=== PATIENT | male | born 1970 | race Caucasian/White ===

== ENCOUNTER 2018-02-09 13:59 | Observation (INO) | payer BC ==
--- NOTE | 2018-02-09 14:13 | ED ---
General Adult HPI - General Stated complaint: SEIZURE, DETOX , ETOH, MED CLEARANCE Time Seen by Provider: 02/09/18 14:02 Source: patient, RN notes reviewed Limitations: no limitations - History of Present Illness Initial comments: Patient is a pleasant 47-year-old male presenting to the emergency department by EMS with possible seizure. Patient went to [place] today for rehab. Patient admits to drinking 2/5 of alcohol today. Patient does drink vodka regularly. 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 Patient does not take any medication for seizures. Patient denies any suicidal or homicidal thoughts. No physical complaints. EMS reports that patient did make suicidal statements in route. - Related Data Home Medications Medication Instructions Recorded Confirmed DULoxetine HCL [Cymbalta] 60 mg PO DAILY 02/09/18 02/09/18 Allergies Allergy/AdvReac Type Severity Reaction Status Date / Time No Known Allergies Allergy Verified 02/09/18 14:55 Review of Systems ROS Statement: Those systems with pertinent positive or pertinent negative responses have been documented in the HPI. ROS Other: All systems not noted in ROS Statement are negative. Constitutional: Denies: fever Eyes: Denies: eye pain ENT: Denies: ear pain Respiratory: Denies: cough Cardiovascular: Denies: chest pain Endocrine: Denies: fatigue Gastrointestinal: Denies: abdominal pain Genitourinary: Denies: dysuria Musculoskeletal: Denies: back pain Skin: Denies: rash Neurological: Denies: headache, weakness Past Medical History Past Medical History: No Reported History Additional Past Medical History / Comment(s): was chewing on edge of plastic bag , accidently bit off piece and is lodged down in throat-can breathe fine, can eat but small amounts only-can feel it down in throat History of Any Multi-Drug Resistant Organisms: None Reported Additional Past Surgical History / Comment(s): humerus prosthesis left shoulder Additional Past Anesthesia/Blood Transfusion Reaction / Comment(s): woke up during shouder surg. Smoking Status: Current every day smoker General Exam Limitations: no limitations General appearance: alert, in no apparent distress, appears intoxicated Head exam: Present: atraumatic, normocephalic Eye exam: Present: normal appearance, PERRL, EOMI, nystagmus ENT exam: Present: normal oropharynx Neck exam: Absent: tenderness Respiratory exam: Present: normal lung sounds bilaterally Cardiovascular Exam: Present: regular rate, normal rhythm GI/Abdominal exam: Present: soft. Absent: tenderness Extremities exam: Present: normal inspection Neurological exam: Present: alert, oriented X3, CN II-XII intact, abnormal gait. Absent: motor sensory deficit Psychiatric exam: Present: other (Labile) Skin exam: Present: normal color Course Vital Signs 02/09/18 14:13 Temperature 98.1 F Pulse Rate 107 H Respiratory 18 Rate Blood Pressure 150/82 O2 Sat by Pulse 96 Oximetry Medical Decision Making - Medical Decision Making Patient will need mental health evaluation. Case was discussed with Dr. Espinoza , who will admit for hospital call. - Lab Data Result diagrams: 02/09/18 14:40 02/09/18 14:40 Lab Results 02/09/18 02/09/18 02/09/18 Range/Units 14:00 14:40 14:40 WBC 6.8 (3.8-10.6) k/uL RBC 5.12 (4.30-5.90) m/uL Hgb 16.6 (13.0-17.5) gm/dL Hct 47.1 (39.0-53.0) % MCV 92.0 (80.0-100.0) fL MCH 32.5 (25.0-35.0) pg MCHC 35.3 (31.0-37.0) g/dL RDW 12.9 (11.5-15.5) % Plt Count 336 (150-450) k/uL Sodium 146 H (137-145) mmol/L Potassium 4.4 (3.5-5.1) mmol/L Chloride 112 H (98-107) mmol/L Carbon Dioxide 21 L (22-30) mmol/L Anion Gap 13 mmol/L BUN 10 (9-20) mg/dL Creatinine 0.98 (0.66-1.25) mg/dL Est GFR (CKD-EPI)AfAm >90 (>60 ml/min/1.73 sqM) Est GFR (CKD-EPI)NonAf >90 (>60 ml/min/1.73 sqM) Glucose 102 H (74-99) mg/dL Calcium 9.8 (8.4-10.2) mg/dL Magnesium 2.3 (1.6-2.3) mg/dL Total Bilirubin 0.3 (0.2-1.3) mg/dL AST 41 (17-59) U/L ALT 42 (21-72) U/L Alkaline Phosphatase 74 (38-126) U/L Total Protein 7.2 (6.3-8.2) g/dL Albumin 4.3 (3.5-5.0) g/dL Urine Opiates Screen Not Detected (NotDetected) Ur Oxycodone Screen Not Detected (NotDetected) Urine Methadone Screen Not Detected (NotDetected) Ur Propoxyphene Screen Not Detected (NotDetected) Ur Barbiturates Screen Not Detected (NotDetected) U Tricyclic Antidepress Not Detected (NotDetected) Ur Phencyclidine Scrn Not Detected (NotDetected) Ur Amphetamines Screen Not Detected (NotDetected) U Methamphetamines Scrn Not Detected (NotDetected) U Benzodiazepines Scrn Not Detected (NotDetected) Urine Cocaine Screen Not Detected (NotDetected) U Marijuana (THC) Screen Not Detected (NotDetected) Serum Alcohol 292 H* mg/dL Disposition Clinical Impression: Suicidal ideation, Alcohol intoxication Disposition: ADMITTED IP TO THIS HOSP Is patient prescribed a controlled substance at d/c from ED?: No Referrals: None,Stated [Primary Care Provider] - 1-2 days Decision Time: 15:23
[2018-02-09] MEDS ORDERED: LORazepam 2 MG/ML INJ IM STA (14:47)
[2018-02-09] MEDS ORDERED: ZIPRASIDONE 20 MG VIAL IM STA (14:47)
[2018-02-09 14:56] LABS: HCT 47.1 % (39.0-53.0); HGB 16.6 gm/dL (13.0-17.5); MCH 32.5 pg (25.0-35.0); MCHC 35.3 g/dL (31.0-37.0); Mean Platelet Volume 6.3; Platelet Count 336 k/uL (150-450); RBC 5.12 m/uL (4.30-5.90); RDW 12.9 % (11.5-15.5); WBC 6.8 k/uL (3.8-10.6)
[2018-02-09 15:01] LABS: Amphetamine Screen,Urine Not Detected (NotDetected); Barbiturate Screen,Urine Not Detected (NotDetected); Benzodiazepines Screen,Urine Not Detected (NotDetected); Cocaine Screen,Urine Not Detected (NotDetected); Methadone Screen, Urine Not Detected (NotDetected); Opiate Screen,Urine Not Detected (NotDetected); Oxycodone Screen, Urine Not Detected (NotDetected); Phencyclidine Screen,Urine Not Detected (NotDetected); Tricyclic Antidepressant,Urine Not Detected (NotDetected); Urn Cannabinoid Scrn Not Detected (NotDetected)
[2018-02-09 15:11] LABS: ALT 42 U/L (21-72); AST 41 U/L (17-59); Albumin 4.3 g/dL (3.5-5.0); Alkaline Phosphatase 74 U/L (38-126); Anion Gap 13 mmol/L; Blood Urea Nitrogen 10 mg/dL (9-20); Calcium 9.8 mg/dL (8.4-10.2); Carbon Dioxide 21 mmol/L (22-30); Chloride 112 mmol/L (98-107); Glucose 102 mg/dL (74-99); Magnesium 2.3 mg/dL (1.6-2.3); Potassium 4.4 mmol/L (3.5-5.1); Sodium 146 mmol/L (137-145); Total Bilirubin 0.3 mg/dL (0.2-1.3); Total Protein 7.2 g/dL (6.3-8.2)
[2018-02-09 15:14] LABS: Alcohol 292 mg/dL
[2018-02-09] MEDS ORDERED: NALOXONE 0.4 MG/ML 1 ML VIAL IV PRN (15:23)
[2018-02-09] MEDS ORDERED: LORazepam 2 MG/ML INJ IV PRN ×3 (15:26)
[2018-02-09] MEDS ORDERED: THIAMINE 100 MG/ML 2 ML VIAL IM STA (15:26)
[2018-02-09] MEDS ORDERED: SODIUM CHLORIDE 0.9% 1,000 ML IV SCH (15:30)
[2018-02-09 15:47] LABS: Lymphocytes # (M) 1.36 k/uL (1.0-4.8); Monocytes # (M) 0.14 k/uL (0-1.0); Neutrophils % (M) 78 %; Nucleated Red Blood Cells 0 /100 WBC (0-0); Total Cells Counted 100
[2018-02-09] MEDS: THIAMINE 100 MG TAB PO SCH ×2 (18:51→18:54)
[2018-02-09] MEDS ORDERED: SODIUM CHLORIDE 0.45% 1,000 ML IV SCH (23:45)
--- NOTE | 2018-02-09 23:46 | P.HPIM ---
History of Present Illness H&P Date: 02/09/18 Chief Complaint: Possible seizures Patient is a 47-year-old male with a known history of depression was brought to the hospital by EMS with possible seizures. Patient went to [place] today for rehab. Patient admits to drinking 2/5 of alcohol today. Patient does drink vodka regularly. 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 Patient does not take any medication for seizures. No shaky movements were noted as per EMS. Patient denies any suicidal or homicidal thoughts. No physical complaints. EMS reports that patient did make suicidal statements in route. Currently patient is alcohol intoxicated and unable to provide history. Most of the history was taken from medical records and EMS notes. Review of Systems Complete review of systems could not be obtained from the patient. Past Medical History Past Medical History: No Reported History Additional Past Medical History / Comment(s): was chewing on edge of plastic bag , accidently bit off piece and is lodged down in throat-can breathe fine, can eat but small amounts only-can feel it down in throat History of Any Multi-Drug Resistant Organisms: None Reported Past Surgical History: No Surgical Hx Reported Additional Past Surgical History / Comment(s): humerus prosthesis left shoulder Additional Past Anesthesia/Blood Transfusion Reaction / Comment(s): woke up during shouder surg. Past Psychological History: ADD/ADHD, Depression Smoking Status: Unknown if ever smoked Past Alcohol Use History: Abuse, Daily Past Drug Use History: None Reported Additional Drug Use History / Comment(s): doesn 't use anymore Medications and Allergies Home Medications Medication Instructions Recorded Confirmed Type DULoxetine HCL [Cymbalta] 60 mg PO DAILY 02/09/18 02/09/18 History Allergies Allergy/AdvReac Type Severity Reaction Status Date / Time No Known Allergies Allergy Verified 02/09/18 14:55 Physical Exam Vitals: Vital Signs Temp Pulse Pulse Resp BP BP Pulse Ox 02/09/18 19:25 97.7 F 64 20 125/61 94 L 02/09/18 18:38 98.1 F 107 H 18 150/82 96 02/09/18 14:13 98.1 F 107 H 18 150/82 96 Intake and Output 02/09/18 02/09/18 02/09/18 06:59 14:59 22:59 Other: Weight 98.883 kg 85.956 kg PHYSICAL EXAMINATION: Patient is lying in the bed comfortably, no acute distress, awake alert and oriented.. HEENT: Normocephalic. Neck is supple. Pupils reactive. Nostrils clear. Oral cavity is moist. Ears reveal no drainage. Neck reveals no JVD, carotid bruits, or thyromegaly. CHEST EXAMINATION: Trachea is central. Symmetrical expansion. Lung arredondo clear to auscultation and percussion. CARDIAC: Normal S1, S2 with no gallops. No murmurs ABDOMEN: Soft. Bowel sounds normal. No organomegaly. No abdominal bruits. Extremities: reveal no edema. No clubbing or cyanosis Neurologically awake, alert, oriented x3 with well-coordinated movements. No focal deficits noted Skin: No rash or skin lesions. Psychiatric: Coperative. Could not be assessed at this time. Musculoskeletal: No joint swelling or deformity. Normal range of motion. Results CBC & Chem 7: 02/09/18 14:40 02/09/18 14:40 Labs: Abnormal Lab Results - Last 24 Hours (Table) 02/09/18 Range/Units 14:40 Sodium 146 H (137-145) mmol/L Chloride 112 H (98-107) mmol/L Carbon Dioxide 21 L (22-30) mmol/L Glucose 102 H (74-99) mg/dL Serum Alcohol 292 H* mg/dL Thrombosis Risk Factor Assmnt - DVT/VTE Prophylaxis DVT/VTE Prophylaxis: Pharmacologic Prophylaxis ordered - Choose All That Apply Any of the Below Risk Factors Present?: Yes Each Factor Represents 1 point: Obesity (BMI >25) Thrombosis Risk Factor Assessment Total Risk Factor Score: 1 Thrombosis Risk Factor Assessment Level: Low Risk Assessment and Plan Assessment: Altered mental status due to acute alcohol intoxication Suicidal ideation as per EMS Depression history. Currently not on any medications. Mild hypernatremia and hyperchloremia. DVT prophylaxis Plan: Patient will be continued on IV fluids in the form of half-normal saline and continue to monitor closely. Monitor for withdrawal symptoms. Psychiatric was consulted due to concern for suicidal ideation. Repeat BMP tomorrow. Further recommendations based on the clinical course. Time with Patient: Greater than 30
[2018-02-10] MEDS: HEPARIN SODIUM,PORCINE 5,000 UNIT/ML 1 ML VIAL SQ SCH ×2 (00:04→08:21)
[2018-02-10] MEDS ORDERED: CALCIUM CARBONATE 500 MG CHEWABLE PO PRN (02:19)
[2018-02-10 06:37] VITALS: BP 129/79; PULSE 67; RESP 18; TEMP 98.3
[2018-02-10] MEDS: THIAMINE 100 MG TAB PO SCH (08:21)
[2018-02-10] MEDS ORDERED: MULTIVITAMINS, THERA 1 EACH TAB PO SCH (12:00)
--- NOTE | 2018-02-11 00:24 | P.DS ---
Providers Date of admission: 02/09/18 15:25 Expected date of discharge: 02/10/18 Attending physician: Edgardo Espinoza Consults: 02/09/18 15:25 Consult Physician Urgent Consulting Provider: Chandana Candelario Consult Reason/Comments: Suicidal ideation Do you want consulting provider notified?: Already Contacted Primary care physician: Stated None Hospital Course: Discharge diagnosis Altered mental status due to acute alcohol intoxication Suicidal ideation as per EMS Depression history. Currently not on any medications. Mild hypernatremia and hyperchloremia. DVT prophylaxis Hospital course Patient is a 47-year-old male with a known history of depression was brought to the hospital by EMS with possible seizures. Patient went to [place] today for rehab. Patient admits to drinking 2/5 of alcohol today. Patient does drink vodka regularly. 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 Patient does not take any medication for seizures. No shaky movements were noted as per EMS. Patient denies any suicidal or homicidal thoughts. No physical complaints. EMS reports that patient did make suicidal statements in route. Plan: Patient was continued on IV fluids in the form of half-normal saline and continue to monitor closely. Monitored for withdrawal symptoms. Psychiatric was consulted due to concern for suicidal ideation. Patient is more awake and oriented today. Patient wants to be discharged home. Currently patient is alert and oriented 3 and suicide risk assessment was done. Patient is currently nonsuicidal at this time. Patient was counseled for alcohol abuse extensively. Patient otherwise to stay in the hospital for psychiatric evaluation and further management of withdrawal symptoms. Patient left AMA. Patient Condition at Discharge: Serious Plan - Discharge Summary New Discharge Prescriptions: No Action DULoxetine HCL [Cymbalta] 60 mg PO DAILY Discharge Medication List DULoxetine HCL [Cymbalta] 60 mg PO DAILY 02/09/18 [History] Follow up Appointment(s)/Referral(s): None,Stated [Primary Care Provider] - 1-2 days Discharge Disposition: Left Against Medical Advice
== END 2018-02-10 10:54 | disposition left against medical advice (07) ==
LOC: EC 13:59 → 4MS4W 15:25
PROVIDERS: ADMIT Internal Medicine; ATTEND Internal Medicine
DX: F10.129 Alcohol abuse with intoxication, unspecified (principal); R45.851 Suicidal ideations; F32.9 Major depressive disorder, single episode, unspecified; E87.0 Hyperosmolality and hypernatremia; E87.8 Other disorders of electrolyte and fluid balance, not elsewhere classified; F90.9 Attention-deficit hyperactivity disorder, unspecified type; Z79.899 Other long term (current) drug therapy; E66.9 Obesity, unspecified; Z68.28 Body mass index [BMI] 28.0-28.9, adult; F17.200 Nicotine dependence, unspecified, uncomplicated; Y90.8 Blood alcohol level of 240 mg/100 ml or more
CPT/HCPCS: 99285; 96360; 96361; 82075; 96372; 36415; 80053; 83735; 85025; 80306; 80320; G0378 ×2; J2060; J3486

== ENCOUNTER 2019-05-04 12:38 | Emergency (ER) | payer BC ==
[2019-05-04 12:42] VITALS: TEMP 98.1
[2019-05-04] MEDS ORDERED: SODIUM CHLORIDE 0.9% 1,000 ML IV ONE (12:51)
--- NOTE | 2019-05-04 12:57 | ED ---
General Adult HPI - General Chief complaint: Altered Mental Status Stated complaint: lethargy Time Seen by Provider: 05/04/19 12:45 Source: patient, EMS, RN notes reviewed, old records reviewed Mode of arrival: EMS Limitations: no limitations - History of Present Illness Initial comments: 48-year-old male presenting from [place] with confusion and alcohol intoxication. Patient was waiting in the waiting room and fell and hit his head. He admits to drinking alcohol on his way to [place]. Also admits to taking an unknown dose of Seroquel. Denies any other drugs of abuse. He states this was not a suicidal attempt. He is eager to return to [place] for alcohol rehabilitation. No other complaints. He is somewhat drowsy but easily arousable and able to answer all questions. - Related Data Home Medications Medication Instructions Recorded Confirmed DULoxetine HCL [Cymbalta] 60 mg PO DAILY 02/09/18 02/09/18 Allergies Allergy/AdvReac Type Severity Reaction Status Date / Time No Known Allergies Allergy Verified 02/09/18 14:55 Review of Systems ROS Statement: Those systems with pertinent positive or pertinent negative responses have been documented in the HPI. ROS Other: All systems not noted in ROS Statement are negative. Past Medical History Past Medical History: No Reported History Additional Past Medical History / Comment(s): was chewing on edge of plastic bag, accidently bit off piece and is lodged down in throat-can breathe fine, can eat but small amounts only-can feel it down in throat History of Any Multi-Drug Resistant Organisms: None Reported Past Surgical History: No Surgical Hx Reported Additional Past Surgical History / Comment(s): humerus prosthesis left shoulder Additional Past Anesthesia/Blood Transfusion Reaction / Comment(s): woke up during shouder surg. Past Psychological History: ADD/ADHD, Depression Smoking Status: Unknown if ever smoked Past Alcohol Use History: Abuse, Daily Past Drug Use History: None Reported General Exam Limitations: no limitations General appearance: alert, in no apparent distress, appears intoxicated Head exam: Present: atraumatic, normocephalic Eye exam: Present: normal appearance, PERRL ENT exam: Present: mucous membranes dry Neck exam: Present: normal inspection. Absent: tenderness, meningismus Respiratory exam: Present: normal lung sounds bilaterally. Absent: respiratory distress, wheezes Cardiovascular Exam: Present: regular rate, normal rhythm GI/Abdominal exam: Present: soft. Absent: distended, tenderness Extremities exam: Present: normal inspection, normal capillary refill. Absent: pedal edema, calf tenderness Neurological exam: Present: alert, oriented X3, CN II-XII intact. Absent: motor sensory deficit Psychiatric exam: Present: normal affect, normal mood. Absent: homicidal ideation, suicidal ideation Skin exam: Present: warm, dry, intact. Absent: cyanosis, diaphoretic Course Vital Signs 05/04/19 05/04/19 12:40 13:42 Temperature 98.1 F Pulse Rate 65 Respiratory 18 16 Rate Blood Pressure 96/64 O2 Sat by Pulse 98 98 Oximetry Medical Decision Making - Medical Decision Making 48 year old male presenting for evaluation after fall and minor head trauma. No external signs of trauma. Head CT is performed which is negative for intracranial hemorrhage or mass effect. Patient has an alcohol level LXII and admits to taking a Seroquel prior to arrival. Patient is sleepy but easily arousable. He's ambulatory in the emergency department. His mother is in the emergency department and they do have arrangements to take this patient to rehab. They're eager to get the patient into a rehab facility. Patient comfortable with stable vitals, nonfocal neurologic exam. - Lab Data Lab Results 05/04/19 Range/Units 13:40 Serum Alcohol 62 mg/dL Disposition Clinical Impression: Alcohol intoxication, Drug overdose, Concussion Disposition: HOME SELF-CARE Condition: Fair Instructions (If sedation given, give patient instructions): Alcohol Intoxication (ED), Concussion (ED) Additional Instructions: Patient will be discharged from here and taken immediately to [place] for rehabilitation. Is patient prescribed a controlled substance at d/c from ED?: No Referrals: None,Stated [Primary Care Provider] - 1-2 days Juvenal Rubio [STAFF PHYSICIAN] - 1-2 days Time of Disposition: 14:43
--- NOTE | 2019-05-04 13:24 | CT ---
EXAMINATION TYPE: CT brain wo con DATE OF EXAM: 05/04/2019 COMPARISON: None HISTORY: Fall/ ETOH, altered mental status CT DLP: 1099.4 mGycm. Automated Exposure Control for Dose Reduction was Utilized. TECHNIQUE: CT scan of the head is performed without contrast. FINDINGS: There is no acute intracranial hemorrhage, mass effect, or midline shift identified. The ventricles and sulci are within normal limits in size. The globes are intact and the visualized sin uses are clear. IMPRESSION: No acute intracranial hemorrhage, mass effect, or midline shift is seen.
[2019-05-04 13:50] VITALS: RESP 16
[2019-05-04 14:56] VITALS: BP 114/54; PULSE 64
== END 2019-05-04 14:57 | disposition home or self-care (01) ==
LOC: EC 12:38
DX: S06.0X0A Concussion without loss of consciousness, initial encounter (principal); F10.129 Alcohol abuse with intoxication, unspecified; T43.591A Poisoning by other antipsychotics and neuroleptics, accidental (unintentional), initial encounter; F32.9 Major depressive disorder, single episode, unspecified; Z79.899 Other long term (current) drug therapy; W18.09XA Striking against other object with subsequent fall, initial encounter
CPT/HCPCS: 36415; 70450; 80320; 96360; 99285

== ENCOUNTER 2019-06-19 21:27 | Inpatient (IN) | payer BC ==
--- NOTE | 2019-06-19 22:28 | ED ---
Psych HPI - General Chief Complaint: Psychiatric Symptoms Stated Complaint: ETOH-Suicidal Time Seen by Provider: 06/19/19 21:50 Source: patient, EMS Mode of arrival: EMS Limitations: altered mental status (Patient intoxicated) - History of Present Illness Initial Comments: Patient's 49-year-old man brought by ambulance for evaluation. The patient reportedly had been drinking and then became somewhat belligerent. There is a petition filed by the patient's sister that states that he had confused her for being her mother. He also had made some threatening statements toward a cousin. When I interview the patient, he states that he was just drunk. He denies suicidal or homicidal ideation. Complaint: other -: hour(s) Associated Psychiatric Symptoms: none - Related Data Home Medications Medication Instructions Recorded Confirmed DULoxetine HCL [Cymbalta] 60 mg PO DAILY 02/09/18 02/09/18 Allergies Allergy/AdvReac Type Severity Reaction Status Date / Time No Known Allergies Allergy Verified 02/09/18 14:55 Review of Systems ROS Statement: Those systems with pertinent positive or pertinent negative responses have been documented in the HPI. ROS Other: All systems not noted in ROS Statement are negative. Limitations: ROS unobtainable due to patients medical condition (Patient intoxicated) Respiratory: Denies: dyspnea Cardiovascular: Denies: chest pain Gastrointestinal: Denies: abdominal pain Musculoskeletal: Denies: back pain Neurological: Denies: headache Past Medical History Past Medical History: No Reported History Additional Past Medical History / Comment(s): was chewing on edge of plastic bag, accidently bit off piece and is lodged down in throat-can breathe fine, can eat but small amounts only-can feel it down in throat History of Any Multi-Drug Resistant Organisms: None Reported Past Surgical History: No Surgical Hx Reported Additional Past Surgical History / Comment(s): humerus prosthesis left shoulder Additional Past Anesthesia/Blood Transfusion Reaction / Comment(s): woke up during shouder surg. Past Psychological History: ADD/ADHD, Depression Smoking Status: Unknown if ever smoked Past Alcohol Use History: Abuse, Daily Past Drug Use History: None Reported General Exam Limitations: no limitations General appearance: alert, appears intoxicated Head exam: Present: atraumatic, normocephalic Eye exam: Present: normal appearance, EOMI, nystagmus. Absent: scleral icterus, conjunctival injection ENT exam: Present: normal oropharynx Neck exam: Present: full ROM. Absent: tenderness Respiratory exam: Present: normal lung sounds bilaterally. Absent: respiratory distress, wheezes, rales, rhonchi, stridor, chest wall tenderness Cardiovascular Exam: Present: regular rate, normal rhythm, normal heart sounds. Absent: systolic murmur, diastolic murmur, rubs, gallop GI/Abdominal exam: Present: soft. Absent: tenderness, guarding, rebound Extremities exam: Present: normal inspection, normal capillary refill. Absent: pedal edema Neurological exam: Present: alert, oriented X3. Absent: motor sensory deficit Psychiatric exam: Present: normal affect, normal mood. Absent: homicidal ideation, suicidal ideation Skin exam: Present: warm, dry, intact, normal color. Absent: rash Course Vital Signs 06/19/19 06/20/19 21:52 05:54 Temperature 98.0 F Pulse Rate 70 83 Respiratory 18 18 Rate Blood Pressure 122/66 120/56 O2 Sat by Pulse 98 98 Oximetry Medical Decision Making - Medical Decision Making Patient reevaluated after sobriety, he is having some suicidal ideation. Patient is seen by EPS and will stay in the hospital. Disposition Clinical Impression: Suicidal ideation Disposition: ADMITTED IP TO THIS HOSP Condition: Fair Is patient prescribed a controlled substance at d/c from ED?: No Referrals: None,Stated [Primary Care Provider] - 1-2 days
[2019-06-20] MEDS ORDERED: IBUPROFEN 400 MG TAB PO STA (05:36)
[2019-06-20] MEDS ORDERED: ONDANSETRON ODT 4 MG TAB PO STA (05:36)
[2019-06-20] MEDS ORDERED: MAG HYDROX/AL HYDROX/SIMETH 30 ML CUP PO PRN (08:20)
[2019-06-20] MEDS ORDERED: LORazepam 1 MG TAB PO PRN (08:20)
[2019-06-20] MEDS ORDERED: MAGNESIUM HYDROXIDE 2,400 MG/10 ML CUP PO PRN (08:20)
[2019-06-20] MEDS ORDERED: hydrOXYzine PAMOATE 25 MG CAP PO PRN (09:04)
[2019-06-20] MEDS: NICOTINE 14MG/24HR PATCH TRANSDERM SCH (09:27)
[2019-06-20] MEDS: LORazepam 1 MG TAB PO PRN (13:49)
--- NOTE | 2019-06-20 14:20 | P.HP ---
Psychiatric H&P - . H&P Date: 06/20/19 History & Physical: IDENTIFYING DATA: 49-year-old single male who [facility]. His sister completed the petition that read "he peed his pants, was calling me mom, I'm his sister. Repeating the same words even when they didn't make sense, and really couldn't talk. ... our dad said he was foaming at the mouth, talked about hanging himself like his cousin, breaking his neck. ..." HISTORY OF PRESENT ILLNESS: I reviewed the medical record and attempted to interview the patient. He was experiencing acute alcohol withdrawal. He complained of sweating, insomnia, nausea (without vomiting), anxiety and restles sness. He denied experiencing visual, tactile or auditory hallucinations or illusions. He was irritable and had difficulty concentrating and attending to the interview. He complained that his sister called the police and filled out a petition for him to be admitted to the hospital. He has a history of alcohol use disorder as well as amphetamine use disorder. He was transferred from [place] to a [facility] in [facility] called [facility]. He left [facility] last week because he missed his family. He was sober and abstinent while he was at [facility]. He relapsed when he returned to [place]. He was drinking up to one fifth of alcohol per day and smoking methamphetamine. His BAT on presentation to the was 0.208 He has no recollection of specific problems that cause his sister to call the police or complet the petition. He does not recall talking about hanging himself. He reports multiple substance abuse treatment episodes and severe complications from alcohol withdrawal including delirium tremens seizures. PAST PSYCHIATRIC HISTORY: He had one prior psychiatric admission to this facility in 2013. He presented with complaints of suicidal ideation in the contents of use of alcohol and cocaine. According to record he has long history of recurrent episodes of depression and anxiety. PAST MEDICAL HISTORY: He denied history of major medical problems. ALLERGIES: Drug ALLERGIES. SUBSTANCE USE HISTORY: He has a history of alcohol, cocaine and methamphetamine use disorder. He has attended over 20 substance abuse treatment programs; the most recent was [place]. He attended Alcoholics Anonymous when he was at [facility]. FAMILY PSYCHIATRIC/SUBSTANCE USE HISTORY: Unknown LEGAL HISTORY: He has had many legal problems. In 2019 he was charged with forgery, uttering and publishing and larceny in a building. Other charges include breaking and entering, unarmed robbery, multiple DUI offenses. His convictions include unarmed property, DUI third offense, forgery and larceny and a building. He has not on probation, parole or has pending charges. SOCIAL HISTORY: I was unable to obtain a social history. He left school in the 10th grade and obtained his GED. He is single and has 3 daughters. 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 He is currently unemployed. MENTAL STATUS EXAM: He presented as a disheveled, irritable and minimally cooperative 49-year-old male. He did not make eye contact and attempts did not appear to be attending to the interview. He had no prominent physical abnormalities. He had a distressed facial expression. He was alert and oriented to person, place and time. Showed psychomotor retardation but no tremor. His gait was slow but steady. His speech was not spontaneous and had decreased rate, rhythm and volume. At this speech was inaudible. His affect was dysphoric. She denied current suicidal ideation or wishes. He denied homicidal ideation. He expressed feelings of hopelessness and helplessness. He did not express clear ideas reference, paranoid ideation or delusions. His thinking was concrete but his associations were coherent and logical. He denied current hallucinations and did not appear to responding to internal stimuli. Global impression of intellect is average. He is aware of his substance use problems and need for treatment. STRENGTHS: Good physical health, supportive family WEAKNESSES: Chronic substance use and recurrent legal problems IMPRESSION: His 49-year-old male who has history of alcohol, cocaine and methamphetamine use disorder. He [facility] with relapse to alcohol and cocaine and suicidal utterances. He complained of alcohol withdrawal symptoms. He had difficulty concentrating and attending to the interview. He is had multiple substance abuse treatment episodes and severe complications from alcohol withdrawal including delirium tremens seizures. He should be treated inpatient unit with combination of psychopharmacology and multimodal therapy. Transfer to medicine if he develops complications from his alcohol withdrawal. PRINCIPLE DIAGNOSIS: Alcohol withdrawal, alcohol use disorder severe, methamphetamine use disorder severe, cocaine use disorder severe, alcohol withdrawal, rule out alcohol withdrawal delirium, antisocial personality disorder RECOMMENDATION: Admitted to the psychiatric unit. Safety precautions. Seizure precautions. Alcohol detoxification regimen with Ativan using the CIWA. Monitor for signs and symptoms of delirium. Consult medicine for initial physical exam and medical history. tar worker to complete the initial psychosocial assessment coordinate discharge and aftercare. Encourage participation in therapeutic groups and activities. Evaluate clinical status response to treatment daily basis. Allergies Allergy/AdvReac Type Severity Reaction Status Date / Time No Known Allergies Allergy Verified 06/20/19 08:02 Vital Signs Temp 98.4 F 06/20/19 09:10 Pulse 69 06/20/19 09:10 Resp 16 06/20/19 09:10 BP 143/76 06/20/19 09:10 Pulse Ox 96 06/20/19 09:10 Intake & Output 06/19/19 06/20/19 06/20/19 18:59 06:59 18:59 Weight 81.647 kg 90.718 kg 06/20/19 11:15 06/20/19 14:13
--- NOTE | 2019-06-20 15:47 | P.MDCNMH ---
History of Present Illness H&P Date: 06/20/19 Chief Complaint: Medical management 49-year-old single male who presented to the ER involuntarily after he was petitioned by his sister for inappropriate behavior towards her. When he was interviewed he denied having medical issues, and does not take medications o n a chronic basis. He had some pain in the tip of his left index finger, which she states due to fiberglass being shoved into it from the couch. He stated that he was drunk at that time. He drinks on a daily basis. In addition he smokes and uses meth. Other than that he denies any other physical symptoms including chest pain, shortness of breath, fevers, chills, nausea or vomiting, diarrhea, urinary symptoms. Review of Systems Complete review of system performed, pertinent positives per HPI, otherwise negative Past Medical History Past Medical History: No Reported History Additional Past Medical History / Comment(s): was chewing on edge of plastic bag, accidently bit off piece and is lodged down in throat-can breathe fine, can eat but small amounts only-can feel it down in throat History of Any Multi-Drug Resistant Organisms: None Reported Past Surgical History: No Surgical Hx Reported Additional Past Surgical History / Comment(s): humerus prosthesis left shoulder Additional Past Anesthesia/Blood Transfusion Reaction / Comment(s): woke up during shouder surg. Smoking Status: Current every day smoker Medications and Allergies Home Medications Medication Instructions Recorded Confirmed Type No Known Home Medications 06/20/19 06/20/19 History Allergies Allergy/AdvReac Type Severity Reaction Status Date / Time No Known Allergies Allergy Verified 06/20/19 08:02 Physical Exam Vitals: Vital Signs Temp Pulse Pulse Resp BP BP Pulse Ox 06/20/19 13:49 93 20 141/68 06/20/19 09:10 98.4 F 69 16 143/76 96 06/20/19 08:22 83 18 120/70 98 06/20/19 05:54 83 18 120/56 98 06/19/19 21:52 98.0 F 70 18 122/66 98 Intake and Output 06/20/19 06/20/19 06/20/19 06:59 14:59 22:59 Other: Weight 90.718 kg Constitutional: No acute distress, conversant, pleasant Eyes:Anicteric sclerae, moist conjunctiva, no lid-lag, PERRLA, ENMT: Oropharynx clear, no erythema, exudates Neck: Supple, FROM, no masses, or JVD, No carotid bruits, No thyromegaly Lungs: Clear to auscultation, Clear to percussion, Normal respiratory effort, no accessory muscle use Cardiovascular: Heart regular in rate and rhythm, No murmurs, gallops, or rubs, No peripheral edema Abdominal: Soft, Nontender, no guarding, rebound or rigidity, Normoactive bowel sounds, No hepatomegaly, No splenomegaly, No palpable mass Skin: Normal temperature, tone, texture, turgor, no induration, No subcutaneous nodules, No rash, lesions, No ulcers Extremities: Right index finger swelling at the tip, tender with some bruising. No clubbing, Pedal pulses intact and symmetrical, Radial pulses intact and symmetrical, No calf tenderness Psychiatric: Alert and oriented to person, place and time, appropriate affect, intact judgement Neuro: Muscles Strength 5/5 in all 4 extremities, Sensation to light touch grossly present throughout, Cranial nerves II-XII grossly intact, no focal sensory deficits Cranial Nerve Examination - Cranial Nerves Cranial Nerve II- Optic: Intact Cranial Nerve III- Oculomotor: Intact Cranial Nerve IV- Trochlear: Intact Cranial Nerve V- Trigeminal: Intact Cranial Nerve - Abducens: Intact Cranial Nerve VII- Facial: Intact Cranial Nerve VIII- Auditory: Intact Cranial Nerve IX- Glossopharyngeal: Intact Cranial Nerve X- Vagus: Intact Cranial Nerve XI- Accessory: Intact Cranial Nerve XII- Hypoglossal: Intact Assessment and Plan Plan: Health maintenance Check thyroid, lipid panel, A1c, CBC and CMP. Finger pain Motrin and tylenol prn for pain, Consult orthopedics Acute psychosis Management per psychiatry Send urine drug screen
[2019-06-21 06:42] VITALS: RESP 16
[2019-06-21] MEDS: NICOTINE 14MG/24HR PATCH TRANSDERM SCH (09:24)
[2019-06-21 09:30] LABS: HCT 42.3 % (39.0-53.0); HGB 14.5 gm/dL (13.0-17.5); MCH 31.2 pg (25.0-35.0); MCHC 34.2 g/dL (31.0-37.0); MCV 91.2 fL (80.0-100.0); Mean Platelet Volume 7.4; Platelet Count 334 k/uL (150-450); RBC 4.63 m/uL (4.30-5.90); RDW 12.5 % (11.5-15.5); WBC 6.7 k/uL (3.8-10.6)
[2019-06-21 09:53] LABS: ALT 33 U/L (4-49); AST 40 U/L (17-59); African American GFR (CKD) >90 (>60 ml/min/1.73 sqM); Albumin 3.7 g/dL (3.5-5.0); Alkaline Phosphatase 94 U/L (38-126); Anion Gap 9 mmol/L; Blood Urea Nitrogen 10 mg/dL (9-20); Carbon Dioxide 27 mmol/L (22-30); Chloride 100 mmol/L (98-107); Cholesterol 187 mg/dL (<200); Glucose 137 mg/dL (74-99); HDL Cholesterol 64 mg/dL (40-60); LDL Cholesterol,Calculated 99 mg/dL (0-99); Non-African American GFR(CKD) >90 (>60 ml/min/1.73 sqM); Sodium 136 mmol/L (137-145); Total Bilirubin 0.4 mg/dL (0.2-1.3); Total Protein 6.3 g/dL (6.3-8.2); Triglycerides 122 mg/dL (<150)
--- NOTE | 2019-06-21 10:55 | P.PN ---
Progress Note - Text Interval history: The patient is found in his room he follows me to an interview room. The psychiatric evaluation note was reviewed. The patient presents with substance use disorders as well as recent statements that he felt suicidal. He states today that he wishes he would "never wake up". He endorses a history of depression with episodes occurring even during times of sobriety. He indicates that he has been on an antidepressant in the past which did seem to help. We reviewed options in terms of medication management. He indicates that he has been drinking a fifth to a gallon a day and using methamphetamine daily. He feels very tired he does not feel that he can stay awake during groups. Vital signs reviewed, see with scores reviewed. He indicates his plan is to attend a 90 day treatment at [facility] but states he is willing to attend a shorter term rehab prior to that. Mental status exam: The patient is alert he is dressed in hospital gowns hygiene grooming impaired he does have a follow body odor. Eye contact is poor he looks down at the floor for most of the session. He is tearful and crying throughout the session. He reports a depressed mood with hopelessness thoughts he is endorsing at least passive suicidal ideation. Indicates he feels safe in the hospital. He is reporting no homicidal ideation intent or plan. He reports no auditory or visual hallucinations or any specific delusions. There is no observed evidence of psychosis. He demonstrates no tangential thinking loose associations or flight of ideas. Insight and judgment limited. He demonstrates no verbal or physical aggressiveness he demonstrates no involuntary repetitive movements. He demonstrates no observed evidence of tremor or alcohol withdrawal symptoms at this point. Plan: The patient will be started on Lexapro 10 mg daily for depressive symptoms. He does appear to have a history of major depressive disorder with episodes occurring even during times of sobriety. He is willing to attend inpatient chemical dependency treatment and is willing to attend [facility] or another shorter term facility until the longer term arrangements have been made. We will continue to monitor vital signs. He is encouraged to participate in the milieu. We will continue to monitor him for safety. We will involve family in treatment and discharge planning as he will allow.
[2019-06-21 10:59] LABS: Basophils # (M) 0.07 k/uL (0-0.2); Eosinophils # (M) 0.07 k/uL (0-0.7); Lymphocytes # (M) 1.54 k/uL (1.0-4.8); Neutrophils # (M) 4.62 k/uL (1.3-7.7); Neutrophils % (M) 69 %; Nucleated Red Blood Cells 0 /100 WBC (0-0); Total Cells Counted 100
--- NOTE | 2019-06-21 13:45 | P.GSCN ---
History of Present Illness Consult date: 06/21/19 Reason for Consult: Fiberglass shard stuck in right index finger Requesting physician: Kadie Barrett History of present illness: CHIEF COMPLAINT: Foreign object in finger HISTORY OF PRESENT ILLNESS: 49-year-old male admitted to the mental health unit. General surgery was consulted for possible fiberglass shard in right index finger. PAST MEDICAL HISTORY: See list. PAST SURGICAL HISTORY: See list. SOCIAL HISTORY: Reports alcohol use REVIEW OF SYSTEMS: CONSTITUTIONAL: Denies fever or chills. HEENT: Denies blurred vision, vision changes, or eye pain. Denies hemoptysis CARDIOVASCULAR: Denies chest pain or pressure. RESPIRATORY: No shortness of breath. GASTROINTESTINAL: Denies abdominal pain. HEMATOLOGIC: Denies bleeding disorders. GENITOURINARY: Denies any blood in urine. SKIN: Denies pruitis. Denies rash. PHYSICAL EXAM: VITAL SIGNS: Reviewed. GENERAL: Well-developed in no acute distress. HEENT: No sclera icterus. Extraocular movements grossly intact. Moist buccal mucosa. Head is atraumatic, normocephalic. ABDOMEN: Soft. Nondistended. Nontender. NEUROLOGIC: Alert and oriented. Cranial nerves II through XII grossly intact. EXTREMITIES: Redness noted to side of nail bed of right index finger. No obvious foreign body visualized. LABORATORY DATA: WBC 6.7. Hemoglobin 14.5. Platelet count 334. Sodium 136. Potassium 4.0. BUN 10. Creatinine 0.70. ASSESSMENT: 1. Possible infection of right index finger PLAN: -No intervention recommended from a general surgery standpoint -Dr. Kearns recommends consult to Dr. Tracey for further evaluation -We will sign off. Please re-consult if needed. Nurse practitioner note has been reviewed by physician. Signing provider agrees with the documented findings, assessment, and plan of care. Past Medical History Past Medical History: No Reported History Additional Past Medical History / Comment(s): was chewing on edge of plastic bag, accidently bit off piece and is lodged down in throat-can breathe fine, can eat but small amounts only-can feel it down in throat History of Any Multi-Drug Resistant Organisms: None Reported Past Surgical History: No Surgical Hx Reported Additional Past Surgical History / Comment(s): humerus prosthesis left shoulder Additional Past Anesthesia/Blood Transfusion Reaction / Comm: woke up during shouder surg. Smoking Status: Current every day smoker Medications and Allergies Home Medications Medication Instructions Recorded Confirmed Type No Known Home Medications 06/20/19 06/20/19 History Allergies Allergy/AdvReac Type Severity Reaction Status Date / Time No Known Allergies Allergy Verified 06/20/19 08:02 Surgical - Exam Vital Signs Temp Pulse Resp BP Pulse Ox 98.0 F 70 18 122/66 98 06/19/19 21:52 06/19/19 21:52 06/19/19 21:52 06/19/19 21:52 06/19/19 21:52 Results - Labs 06/21/19 08:13 06/21/19 08:13 Abnormal Lab Results - Last 24 Hours (Table) 06/21/19 Range/Units 08:13 Sodium 136 L (137-145) mmol/L Glucose 137 H (74-99) mg/dL HDL Cholesterol 64 H (40-60) mg/dL Diabetes panel 06/21/19 Range/Units 08:13 Sodium 136 L (137-145) mmol/L Potassium 4.0 (3.5-5.1) mmol/L Chloride 100 (98-107) mmol/L Carbon Dioxide 27 (22-30) mmol/L BUN 10 (9-20) mg/dL Creatinine 0.70 (0.66-1.25) mg/dL Glucose 137 H (74-99) mg/dL Calcium 9.0 (8.4-10.2) mg/dL AST 40 (17-59) U/L ALT 33 (4-49) U/L Alkaline Phosphatase 94 (38-126) U/L Total Protein 6.3 (6.3-8.2) g/dL Albumin 3.7 (3.5-5.0) g/dL Triglycerides 122 (<150) mg/dL HDL Cholesterol 64 H (40-60) mg/dL Thyroid panel 06/21/19 Range/Units 08:13 TSH 1.260 (0.465-4.680) mIU/L Calcium panel 06/21/19 Range/Units 08:13 Calcium 9.0 (8.4-10.2) mg/dL Albumin 3.7 (3.5-5.0) g/dL Pituitary panel 06/21/19 Range/Units 08:13 Sodium 136 L (137-145) mmol/L Potassium 4.0 (3.5-5.1) mmol/L Chloride 100 (98-107) mmol/L Carbon Dioxide 27 (22-30) mmol/L BUN 10 (9-20) mg/dL Creatinine 0.70 (0.66-1.25) mg/dL Glucose 137 H (74-99) mg/dL Calcium 9.0 (8.4-10.2) mg/dL TSH 1.260 (0.465-4.680) mIU/L Adrenal panel 06/21/19 Range/Units 08:13 Sodium 136 L (137-145) mmol/L Potassium 4.0 (3.5-5.1) mmol/L Chloride 100 (98-107) mmol/L Carbon Dioxide 27 (22-30) mmol/L BUN 10 (9-20) mg/dL Creatinine 0.70 (0.66-1.25) mg/dL Glucose 137 H (74-99) mg/dL Calcium 9.0 (8.4-10.2) mg/dL Total Bilirubin 0.4 (0.2-1.3) mg/dL AST 40 (17-59) U/L ALT 33 (4-49) U/L Alkaline Phosphatase 94 (38-126) U/L Total Protein 6.3 (6.3-8.2) g/dL Albumin 3.7 (3.5-5.0) g/dL
[2019-06-21] MEDS: ACETAMINOPHEN TAB 325 MG TAB PO PRN (14:15)
[2019-06-21] MEDS: LORazepam 1 MG TAB PO PRN (14:16)
--- NOTE | 2019-06-21 15:26 | XR ---
EXAMINATION TYPE: XR hand complete RT DATE OF EXAM: 06/21/2019 CLINICAL HISTORY: Injury with pain and swelling, rule out foreign body. TECHNIQUE: Frontal, lateral and oblique images of the right hand are obtained. COMPARISON: None. FINDINGS: There is no acute fracture/dislocation evident in the right hand. The joint spaces in the right hand appear within normal limits. No suspicious bony destruction or suspicious periosteal react ion identified The overlying soft tissue appears unremarkable without radiodense foreign body with pa rticular attention to the second finger at area of clinical concern. IMPRESSION: As above.
[2019-06-21 17:31] LABS: Hemoglobin A1C 5.5 % (4.0-6.0)
[2019-06-22] MEDS: LORazepam 1 MG TAB PO PRN ×2 (08:27→13:07)
[2019-06-22] MEDS: ACETAMINOPHEN TAB 325 MG TAB PO PRN ×2 (08:27→13:07)
[2019-06-22] MEDS: NICOTINE 14MG/24HR PATCH TRANSDERM SCH (08:28)
[2019-06-22] MEDS: ESCITALOPRAM 10 MG TAB PO SCH (08:28)
--- NOTE | 2019-06-22 09:33 | P.CNOR ---
History of Present Illness - [facility] Consult date: 06/22/19 Consult reason: other History of present illness: Patient is a 49-year-old male who was admitted to [facility] on 06/19/2019 after being petition by his sister due to his mental status and behavior. Since being admitted to the hospital, they noted an issue with his right index finger. Patient feels that he has a piece of fiberglass in the finger, he believes it was from a couch and this was about 4 days ago. Initially the other orthopedic team was consulted with regards to the finger along with general surgery, it was deferred or group. Currently patient is being followed by internal medicine and psychiatric. Patient was evaluated today in the mental health unit. He notes most of the discomfort along the lateral and distal tip of the right index finger. He denies any fevers or chills at this time. He denies any other orthopedic complaints with regards to the hand, wrist, elbow, shoulder. When asking about prior events, he cannot move or any specific trauma to the area. He states that he believes he cut the piece of fiberglass in his finger from a couch. He denies any previous orthopedic surgeon involving the right upper extremity. Review of Systems Constitutional: Reports as per [facility] Past Medical History Past Medical History: No Reported History Additional Past Medical History / Comment(s): was chewing on edge of plastic bag, accidently bit off piece and is lodged down in throat-can breathe fine, can eat but small amounts only-can feel it down in throat History of Any Multi-Drug Resistant Organisms: None Reported Past Surgical History: No Surgical Hx Reported Additional Past Surgical History / Comment(s): humerus prosthesis left shoulder Additional Past Anesthesia/Blood Transfusion Reaction / Comm: woke up during shouder surg. Smoking Status: Current every day smoker Medications and Allergies Home Medications Medication Instructions Recorded Confirmed Type No Known Home Medications 06/20/19 06/20/19 History Allergies Allergy/AdvReac Type Severity Reaction Status Date / Time No Known Allergies Allergy Verified 06/20/19 08:02 Physical Examination Right upper extremity: Obvious erythema and soft tissue swelling present at the distal aspect of the right index finger, more along the lateral border and at the base of the nailbed. There are no obvious open lesions present. There is small scab on the dorsal aspect near the DIP joint. No drainage is visualized. There is no streaking erythema noted. Patient is able wiggle all the fingers and make a fist with no difficulty. Sensory exam to light touch is intact throughout the extremity. His radial pulses 2+. Results - Labs Labs: Abnormal Lab Results - Last 24 Hours (Table) 06/21/19 Range/Units 08:13 Sodium 136 L (137-145) mmol/L Glucose 137 H (74-99) mg/dL HDL Cholesterol 64 H (40-60) mg/dL H & H 06/21/19 Range/Units 08:13 Hgb 14.5 (13.0-17.5) gm/dL Hct 42.3 (39.0-53.0) % Result Diagrams: 06/21/19 08:13 06/21/19 08:13 - Diagnostic results Wrist/Hand x-ray: report reviewed, image reviewed Assessment and Plan Plan: Imaging: X-rays of the hand were reviewed. No acute fractures or dislocations. No obvious evidence of foreign body present involving the right index finger. Assessment: Right index finger paronychia/abscess Possible foreign body right index finger Other medical comorbidities Plan: I was able to discuss the case, including with physical exam findings and imaging studies my attending Dr. Riggs. Due to the length of time that the symptoms have been present along with current exam findings, we recommended surgical intervention. More specifically a incision and drainage with irrigation and debridement of the right index finger. Our plan is to proceed with this on 06/23/2019. Obtain consent Nothing by mouth after midnight Other clinical medical transcriptionist and recommendations Time with Patient: Less than 30
--- NOTE | 2019-06-22 10:24 | P.PN ---
Progress Note - Text Interval history: The patient is found in his room he follows me to an interview room. He reports he feels tired mood is still down. He states he has hopeless thoughts he still has thoughts of not wanting to wake up. He did not attend groups yesterday but states he will do so today. Appetite stable. He states that he is willing to attend inpatient chemical dependency treatment. He is hoping to contact [facility] for longer term care. We discussed that he may need a more acute setting prior to going there. He was seen by orthopedics due to an abscess on his index finger. They are recommending an I&D tomorrow. Mental status exam: The patient is alert he is a disheveled appearance he is dressed in his own clothing hygiene grooming fair. Eye contact is intermittent. Speech is fluent spontaneous nonpressured. He endorses a depressed mood with some hopeless thinking. He continues have thoughts of "not wanting to wake up". He has feelings of anxiety at times. He is reporting no homicidal ideation intent or plan. He is reporting no auditory or visual hallucinations or any specific delusions. He demonstrates no evidence of psychosis hypomania or joon. Affect is constricted to dysphoric throughout the session. He demonstrates no verbal or physical aggressiveness he demonstrates no involuntary repetitive movements. He does frequently change position while seated in a chair but demonstrates no objective evidence of withdrawal. Plan: The patient will continue on the Lexapro we discussed the medication in detail his questions were answered. He is encouraged to participate in groups. CIWA scores reviewed last level was 9. We will continue to monitor him for safety. He requires continued inpatient psychiatric hospitalization for safety reasons. We will anticipate a discharge towards the end of the week if he has sufficiently stabilized. We will involve family in treatment and discharge planning as he will allow.
[2019-06-23] MEDS: NICOTINE 14MG/24HR PATCH TRANSDERM SCH ×2 (09:24→09:34)
[2019-06-23] MEDS: ESCITALOPRAM 10 MG TAB PO SCH (09:34)
[2019-06-23 09:38] VITALS: BP 129/77; PULSE 70; TEMP 98.7
--- NOTE | 2019-06-23 10:58 | P.DS ---
Providers Date of admission: 06/20/19 08:12 Expected date of discharge: 06/23/19 Attending physician: Milind Farooq Consults: 06/20/19 08:20 Consult Physician Routine Consulting Provider: Sabrina Lebron Consult Reason/Comments: H&P medical management Do you want consulting provider notified?: Yes 06/22/19 09:51 Consult Physician Routine Consulting Provider: Artie Riggs Consult Reason/Comments: right finger infection and foreign object. Do you want consulting provider notified?: Yes Primary care physician: Stated None - Discharge Diagnosis(es) (1) Major depressive disorder, recurrent severe without psychotic features Current Visit: Yes Status: Acute Priority: High (2) Alcohol use disorder, severe, dependence Current Visit: Yes Status: Acute Priority: High (3) Methamphetamine use disorder, severe Current Visit: Yes Status: Acute Priority: High (4) Cocaine use disorder, severe, dependence Current Visit: Yes Status: Acute Priority: High Hospital Course: Brief summary of admission note: This patient is a 49-year-old single male who was admitted to the mental health unit through the emergency room for suicidal ideation. The patient had been regularly using alcohol excessively as well as methamphetamine. He presented experiencing symptoms of withdrawal reportedly. He was irritable had difficulty concentrating. He felt overwhelmed with stressors and felt hopeless. For full details please refer to the psychiatric evaluation dictated by Dr. Abraham on 06/20/2019. Summary of hospital course: The patient was admitted to the mental health unit voluntarily. He was initially seen by Dr. Abraham I assumed his care as of this past Thursday. We reviewed his presented symptoms and treatment options. It does appear that the patient does have a history of major depressive disorder and we initiated Lexapro 10 mg daily to treat that disorder. He has been able to tolerate the medication well so far. He was seen by internal medicine for routine history and physical exam he was noted to have an abscess of his right index finger orthopedics was consulted. The recommendation was for the patient to undergo an incision and drainage of the abscess and that will occur this afternoon. The patient has been trying to make arrangements for longer term chemical dependency treatment but that is not yet available. He has been colla borating with his mother and social work and it appears he will be staying at a skilled nursing house through [facility]. He plans to stay with his mother immediately after discharge but will soon transition to the [facility]. He reported a resolution of any hopeless thinking or suicidal ideation. He states he now feels hopeful. Mental status exam: The patient is an alert male appearing his stated age. He is dressed in his own clothing. Hygiene grooming adequate. Eye contact is appropriate speech is fluent spontaneous nonpressured. He demonstrates no tangential thinking lose associations or flight of ideas. He reports no auditory or visual hallucinations or any specific delusions. There is no objective evidence of psychosis. There is no objective evidence of hypomania or joon. He indicates having no hopelessness thinking or any suicidal ideation intent or plan. He reports no homicidal ideation intent or plan. He demonstrates no verbal or physical aggressiveness he demonstrates no involuntary reported movements. He remains oriented to person place and date insight and judgment grossly intact. Affect is appropriately expresses. He readily engages in conversation and is easily directed in the interview. Impressions 1. Major depressive disorder recurrent severe without psychosis, alcohol use disorder severe, methamphetamine use disorder severe, cocaine use disorder severe 2. Abscess of right index finger due to undergo incision and drainage this afternoon Plan: The patient will be discharged mental health unit today prior to his surgery. He plans to reside with his mother briefly before transitioning to a [facility] [place] through [facility]. He will continue on Lexapro 10 mg daily. He is instructed to abstain from any use of alcohol or marijuana or illicit drugs. We discussed that the substances will elevate his safety risk. He does not wish to pursue any medication for his substance use specifically at this time. At this time there is no imminent safety risk is appropriate for transition outpatient care. He is instructed to present to the hospital with any acute safety concerns. Patient Condition at Discharge: Stable Plan - Discharge Summary Discharge Rx Participant: No New Discharge Prescriptions: New Nicotine 14Mg/24Hr Patch [Habitrol] 1 patch TRANSDERM DAILY #14 patch Escitalopram [Lexapro] 10 mg PO DAILY #30 tab Discharge Medication List Escitalopram [Lexapro] 10 mg PO DAILY #30 tab 06/23/19 [Rx] Nicotine 14Mg/24Hr Patch [Habitrol] 1 patch TRANSDERM DAILY #14 patch 06/23/19 [Rx] Follow up Appointment(s)/Referral(s): [facility]Outside[facility] - 06/29/19 6:00 pm ([facility] - 1 Week Patient Instructions/Handouts: How to Stop Smoking (DC), Mood Disorders (DC), Alcohol Intoxication (DC) Activity/Diet/Wound Care/Special Instructions: Activity and diet as tolerated. Avoid the use of street drugs and alcohol. Take all medications as prescribed. When you are in need of refills on your medications please contact your medical provider and/or outpatient psychiatrist to have this done. Please go to scheduled outpatient appointment for aftercare treatment. If symptoms return or become worse, call the crisis line at and/or go to the nearest emergency room for evaluation.
== END 2019-06-23 12:58 | disposition home or self-care (01) | DRG 885 ==
LOC: EC 21:27 → 3MHU 06-20 08:12
PROVIDERS: ADMIT Psychiatry & Neurology Psychiatry; ATTEND Psychiatry & Neurology Psychiatry
DX: F33.2 Major depressive disorder, recurrent severe without psychotic features (principal); F10.231 Alcohol dependence with withdrawal delirium; R45.851 Suicidal ideations; F15.20 Other stimulant dependence, uncomplicated; F14.20 Cocaine dependence, uncomplicated; L02.511 Cutaneous abscess of right hand; S61.240A Puncture wound with foreign body of right index finger without damage to nail, initial encounter; L03.011 Cellulitis of right finger; F90.9 Attention-deficit hyperactivity disorder, unspecified type; F17.210 Nicotine dependence, cigarettes, uncomplicated; Z71.6 Tobacco abuse counseling; Z79.899 Other long term (current) drug therapy; Z65.3 Problems related to other legal circumstances; G47.00 Insomnia, unspecified; F41.9 Anxiety disorder, unspecified; W25.XXXA Contact with sharp glass, initial encounter; W45.8XXA Other foreign body or object entering through skin, initial encounter
CPT/HCPCS: 80053; 80061; 82075; 83036; 84443; 85025; 99285

== ENCOUNTER 2019-06-23 15:05 | Day surgery (SDC) | payer BC ==
[2019-06-23 13:21] VITALS: RESP 16; TEMP 99
--- NOTE | 2019-06-23 14:33 | P.OP ---
Date of Procedure: 06/23/19 Preoperative Diagnosis: Right index finger paronychia Postoperative Diagnosis: Same Procedure(s) Performed: Incision with irrigation right index finger paronychia Anesthesia: MAC, local Surgeon: Artie Riggs Estimated Blood Loss (ml): 1 Pathology: none sent Condition: stable Disposition: PACU Indications for Procedure: 49-year-old patient seen with a right index finger paronychia. I discussed incision with irrigation. Patient was agreeable. Operative Findings: See description of procedure Description of Procedure: Patient was taken to the operative suite. Patient underwent IV sedation by the department of anesthesia. The right upper extremity was prepped and draped in the normal sterile orthopedic fashion. A digital block was achieved the right index finger. When adequate anesthesia was noted there I used a Mead drain for a tourniquet effect. I now made an incision in the area of the paronychia. I did not encounter any purulence. There was no abnormal looking tissue. I irrigated the wound out copiously. I repaired that incision with 2 single interrupted nylon sutures. The Mead drains/tourniquet was released and immediate capillary refill noted. We applied sterile dressings. The patient was awakened, transferred to recovery stable condition.
[2019-06-23 14:45] VITALS: BP 126/67; PULSE 86
[~2019-06-23 15:05] MED LIST: BUPIVACAINE (PF) 0.25% 30 ML VIAL SQ ONE; DEXAMETHASONE SOD PHOSPHATE 10 MG/ML 1 ML VIAL IV ONE; LACTATED RINGERS 1,000 ML IV ONE; MIDAZOLAM 2 MG/2 ML VIAL ONE; ONDANSETRON 4 MG/2 ML VIAL IVP ONE; PROPOFOL 10 MG/ML 20 ML VIAL IV ONE; Pre Op ABX Message 1 EACH MISC MISCELLANE ONE; SODIUM CHLORIDE 0.9% 100 ML IV ONE; fentaNYL (PF) 50 MCG/ML 2 ML AMP ONE
== END 2019-06-23 18:00 | disposition home or self-care (01) ==
LOC: OR 15:05
PROVIDERS: ATTEND Orthopaedic Surgery
DX: L03.011 Cellulitis of right finger (principal); T18.8XXA Foreign body in other parts of alimentary tract, initial encounter; F17.200 Nicotine dependence, unspecified, uncomplicated; R45.851 Suicidal ideations; F32.9 Major depressive disorder, single episode, unspecified; Z79.899 Other long term (current) drug therapy
CPT/HCPCS: 17999; J2250; J1100; J2405; J3010; J2704

== ENCOUNTER 2019-12-02 09:31 | Inpatient (IN) | payer BC, OTHER ==
[2019-12-02] MEDS ORDERED: SODIUM CHLORIDE 0.9% 1,000 ML IV STA (10:23)
[2019-12-02] MEDS ORDERED: KETOROLAC 15 MG/ML 1 ML VIAL IVP STA (10:23)
--- NOTE | 2019-12-02 10:46 | ED ---
Skin/Abscess/FB HPI <Mehran Blackmon - Last Filed: 12/02/19 12:47> - General Source: patient Mode of arrival: ambulatory Limitations: no limitations <Rema Schwarz - Last Filed: 12/02/19 13:21> - General Chief complaint: Skin/Abscess/Foreign Body Stated complaint: abscess on foot Time Seen by Provider: 12/02/19 10:02 - History of Present Illness Initial comments: Patient is a 49-year-old male presenting to the emergency Department with complaints of an abscess on his right foot times one week. Patient states he first started noticing pain and swelling 1 week ago, the wound did open about 2 days ago and he's been trying take care of himself with topical antibiotics however he feels like he waited too long. His whole right foot is red and swollen and he is in a lot of pain. He does admit to being a heroin addict and that is the reason for this abscess. Fever, chills, vomiting. Does admit to some mild nausea. He has not tried taking anything for pain. He does admit to a previous abscess of his right arm but this did not require medical intervention he states he took care of himself. He denies taking any other medications. He has no further complaints at this time. Upon arrival to the ER, his vital signs are stable, afebrile. (Rema Schwarz) - Related Data Home Medications Medication Instructions Recorded Confirmed No Known Home Medications 12/02/19 12/02/19 Allergies Allergy/AdvReac Type Severity Reaction Status Date / Time No Known Allergies Allergy Verified 12/02/19 12:29 Review of Systems ROS Other: All systems not noted in ROS Statement are negative. <Mehran Blackmon - Last Filed: 12/02/19 12:47> ROS Other: All systems not noted in ROS Statement are negative. <Rema Schwarz - Last Filed: 12/02/19 13:21> ROS Statement: Those systems with pertinent positive or pertinent negative responses have been documented in the HPI. Past Medical History Past Medical History: No Reported History Additional Past Medical History / Comment(s): was chewing on edge of plastic bag, accidently bit off piece and is lodged down in throat-can breathe fine, can eat but small amounts only-can feel it down in throat History of Any Multi-Drug Resistant Organisms: None Reported Past Surgical History: No Surgical Hx Reported Additional Past Surgical History / Comment(s): humerus prosthesis left shoulder Additional Past Anesthesia/Blood Transfusion Reaction / Comment(s): woke up during shouder surg. Past Psychological History: ADD/ADHD, Depression Smoking Status: Current every day smoker Past Alcohol Use History: Abuse, Daily Past Drug Use History: Heroin, Methamphetamine <Rema Schwarz - Last Filed: 12/02/19 13:21> General Exam Limitations: no limitations <Rema Schwarz - Last Filed: 12/02/19 13:21> - General Exam Comments Initial Comments: GENERAL: Patient is well-developed and well-nourished. Patient is nontoxic and in no acute distress, does look uncomfortable. HEAD: Atraumatic, normocephalic. EYES: Pupils equal round and reactive to light, extraocular movements intact, sclera anicteric, conjunctiva are normal. Eyelids were unremarkable. ENT: TMs normal, nares patent, oropharynx clear without exudates. Moist mucous membranes. NECK: Normal range of motion, supple without lymphadenopathy or JVD. LUNGS: Unlabored respirations. Breath sounds clear to auscultation bilaterally and equal. No wheezes rales or rhonchi. HEART: Regular rate and rhythm without murmurs, rubs or gallops. ABDOMEN: Soft, nontender, normoactive bowel sounds. No guarding, no rebound. No masses appreciated. : Deferred MUSCULOSKELETAL: Patient has pain with palpation of the entire right foot, it is swollen, large abscess present. He does have normal range of motion of the right ankle although painful. He is neurovascular intact. NEUROLOGICAL: Patient is alert and oriented x 3. Normal speech, normal gait. PSYCH: Normal mood, normal affect. SKIN: Warm, Dry, normal turgor. Patient has an open abscess, approximately 2 cm in diameter on the dorsal aspect of the right ankle, proximal portion of top of the foot. Area is very erythematous, swelling, strong malodorous odor coming from the wound. (Rema Schwarz) Course Vital Signs 12/02/19 09:54 Temperature 98.3 F Pulse Rate 82 Respiratory 18 Rate Blood Pressure 112/70 O2 Sat by Pulse 100 Oximetry Medical Decision Making - Lab Data Result diagrams: 12/02/19 10:36 12/02/19 10:36 <Mehran Blackmon - Last Filed: 12/02/19 12:47> - Lab Data Result diagrams: 12/02/19 10:36 12/02/19 10:36 <Rema Schwarz - Last Filed: 12/02/19 13:21> - Medical Decision Making Patient reexamined and reevaluated by myself, Dr. Blackmon. Patient resting comfortably in bed. Patient does have quarters size stage III ulcer right anterior ankle with significant follow older. Patient admits to injecting drugs into this area. Case was discussed in detail with Dr. Irvin, who will admit covering for hospital call. Patient will be double covered with antibiotics. I do agree with PA findings. This includes diagnostic to rotation and treatment plan. (Mehran Blackmon) Patient is a 49-year-old male, admits to heroin use, presenting with a 2 cm in diameter open abscess of the top of the right foot, right ankle with strong malodorous odor coming from the area. His foot is very swollen, erythematous. His vital signs are stable, afebrile. Labs reveal a normal white count, ESR 68, CRP is 140. Was started on antibiotics including Rocephin and Vanco, as well as pain control and fluids. Patient will be admitted to continue with IV antibiotics and consult infectious disease. Patient was accepted by Dr. Irvin. Case discussed with Dr. Blackmon. (Rema Schwarz) - Lab Data Lab Results 12/02/19 12/02/19 12/02/19 Range/Units 10:36 10:36 10:36 WBC 7.1 (3.8-10.6) k/uL RBC 4.68 (4.30-5.90) m/uL Hgb 14.6 (13.0-17.5) gm/dL Hct 43.7 (39.0-53.0) % MCV 93.3 (80.0-100.0) fL MCH 31.3 (25.0-35.0) pg MCHC 33.5 (31.0-37.0) g/dL RDW 12.4 (11.5-15.5) % Plt Count 523 H (150-450) k/uL Neutrophils % (Manual) 73 % Lymphocytes % (Manual) 18 % Monocytes % (Manual) 5 % Eosinophils % (Manual) 3 % Basophils % (Manual) 1 % Neutrophils # [employer]GER Neutrophils # (Manual) 5.18 (1.3-7.7) k/uL Lymphocytes # (Manual) 1.28 (1.0-4.8) k/uL Monocytes # (Manual) 0.36 (0-1.0) k/uL Eosinophils # (Manual) 0.21 (0-0.7) k/uL Basophils # (Manual) 0.07 (0-0.2) k/uL Nucleated RBCs 0 (0-0) /100 WBC RBC Morphology Normal ESR 68 H (0-15) mm/hr Sodium 135 L (137-145) mmol/L Potassium 5.3 H (3.5-5.1) mmol/L Chloride 100 (98-107) mmol/L Carbon Dioxide 28 (22-30) mmol/L Anion Gap 7 mmol/L BUN 15 (9-20) mg/dL Creatinine 0.57 L (0.66-1.25) mg/dL Est GFR (CKD-EPI)AfAm >90 (>60 ml/min/1.73 sqM) Est GFR (CKD-EPI)NonAf >90 (>60 ml/min/1.73 sqM) Glucose 94 (74-99) mg/dL Plasma Lactic Acid Nikolai 1.4 (0.7-2.0) mmol/L Calcium 9.2 (8.4-10.2) mg/dL Total Bilirubin 0.3 (0.2-1.3) mg/dL AST 25 (17-59) U/L ALT 15 (4-49) U/L Alkaline Phosphatase 102 (38-126) U/L C-Reactive Protein 140.4 H (<10.0) mg/L Total Protein 6.5 (6.3-8.2) g/dL Albumin 3.5 (3.5-5.0) g/dL Disposition <Mehran Blackmon - Last Filed: 12/02/19 12:47> Decision Date: 12/02/19 Decision Time: 12:36 <Rema Schwarz - Last Filed: 12/02/19 13:21> Clinical Impression: Cellulitis of right foot, Decubitus ulcer of right foot, stage 3, IVDU (intravenous drug user) Disposition: ADMITTED IP TO THIS [facility] Condition: Stable
[2019-12-02 11:08] LABS: HCT 43.7 % (39.0-53.0); HGB 14.6 gm/dL (13.0-17.5); MCH 31.3 pg (25.0-35.0); MCHC 33.5 g/dL (31.0-37.0); MCV 93.3 fL (80.0-100.0); Mean Platelet Volume 6.5; Platelet Count 523 k/uL (150-450); RBC 4.68 m/uL (4.30-5.90); RDW 12.4 % (11.5-15.5); WBC 7.1 k/uL (3.8-10.6)
--- NOTE | 2019-12-02 11:22 | XR ---
EXAMINATION TYPE: XR foot complete RT DATE OF EXAM: 12/02/2019 CLINICAL HISTORY: pain TECHNIQUE: Frontal, lateral and oblique images of the right foot are obtained. COMPARISON: None. FINDINGS: There is no acute fracture/dislocation evident. The joint spaces appear within normal gautam its. Soft tissue swelling noted which may reflect underlying cellulitis or posttraumatic change. Ther e appears to be soft tissue ulceration medially. IMPRESSION: There is no acute fracture or dislocation. ICD 10 NO FRACTURE, INITIAL EVALUATION
[2019-12-02 11:24] LABS: ALT 15 U/L (4-49); AST 25 U/L (17-59); African American GFR (CKD) >90 (>60 ml/min/1.73 sqM); Albumin 3.5 g/dL (3.5-5.0); Alkaline Phosphatase 102 U/L (38-126); Anion Gap 7 mmol/L; Blood Urea Nitrogen 15 mg/dL (9-20); Calcium 9.2 mg/dL (8.4-10.2); Carbon Dioxide 28 mmol/L (22-30); Chloride 100 mmol/L (98-107); Glucose 94 mg/dL (74-99); Non-African American GFR(CKD) >90 (>60 ml/min/1.73 sqM); Potassium 5.3 mmol/L (3.5-5.1); Sodium 135 mmol/L (137-145); Total Bilirubin 0.3 mg/dL (0.2-1.3); Total Protein 6.5 g/dL (6.3-8.2)
[2019-12-02 11:35] LABS: Basophils # (M) 0.07 k/uL (0-0.2); Eosinophils # (M) 0.21 k/uL (0-0.7); Lymphocytes # (M) 1.28 k/uL (1.0-4.8); Monocytes # (M) 0.36 k/uL (0-1.0); Neutrophils # (M) 5.18 k/uL (1.3-7.7); Neutrophils % (M) 73 %; Nucleated Red Blood Cells 0 /100 WBC (0-0); Total Cells Counted 100
[2019-12-02 11:39] LABS: C Reactive Protein 140.4 mg/L (<10.0)
[2019-12-02 12:02] LABS: Erythrocyte Sedimentation Rate 68 mm/hr (0-15)
[2019-12-02] MEDS ORDERED: IBUPROFEN 400 MG TAB PO PRN (12:32)
[2019-12-02] MEDS ORDERED: NALOXONE 0.4 MG/ML 1 ML VIAL IV PRN (12:32)
[2019-12-02] MEDS ORDERED: ONDANSETRON 4 MG/2 ML VIAL IVP PRN (12:32)
[2019-12-02] MEDS ORDERED: KETOROLAC 15 MG/ML 1 ML VIAL IVP PRN (12:32)
[2019-12-02] MEDS ORDERED: VANCOMYCIN IV PER PHARMACY 1 EACH MISC MISCELLANE PRN (12:35)
[2019-12-02] MEDS ORDERED: VANCOMYCIN 1,500 MG in SODIUM CHLORIDE 0.9% 250 ML IVPB ONE (13:00)
[2019-12-02] MEDS: SODIUM CHLORIDE 0.9% 1,000 ML IV SCH (13:04)
[2019-12-02] MEDS: MORPHINE SULFATE 4 MG/ML SYRINGE IV PRN ×3 (14:08→23:01)
[2019-12-02] MEDS ORDERED: LOPERAMIDE 2 MG CAP PO PRN (14:47)
[2019-12-02] MEDS ORDERED: LIDOCAINE 1% INJ 10MG/ML (20 ML MDV) SQ ONE (15:10)
--- NOTE | 2019-12-02 15:56 | P.HPIM ---
History of Present Illness 9-year-old male came with abscess on the right fourth which became 1 also 3 days ago with us after a spontaneous rupture with purulent drainage. Patient noticed the swelling about a week ago. Patient does admit to using IV drugs does use her ALMOST EVERYDAY BASIS. Patient denied any fever chills patient was never diagnosed with hepatitis. Patient was started on IV vancomycin. Patient was having significant redness swelling and pain in the right leg. Was having some nausea had previous abscesses in the past. Review of Systems REVIEW OF SYSTEMS: CONSTITUTIONAL: No fever, no malaise, no fatigue. HEENT: No recent visual problems or hearing problems. Denied any sore throat. CARDIOVASCULAR: No chest pain, orthopnea, PND, no palpitations, no syncope. PULMONARY: No shortness of breath, no cough, no hemoptysis. GASTROINTESTINAL: No diarrhea, no nausea, no vomiting, no abdominal pain. NEUROLOGICAL: No headaches, no weakness, no numbness. HEMATOLOGICAL: Denies any bleeding or petechiae. GENITOURINARY: Denies any burning micturition, frequency, or urgency. MUSCULOSKELETAL/RHEUMATOLOGICAL: Denies any joint pain, swelling, or any muscle pain. ENDOCRINE: Denies any polyuria or polydipsia. The rest of the 14-point review of systems is negative. Past Medical History Past Medical History: No Reported History Additional Past Medical History / Comment(s): was chewing on edge of plastic bag, accidently bit off piece and is lodged down in throat-can breathe fine, can eat but small amounts only-can feel it down in throat History of Any Multi-Drug Resistant Organisms: None Reported Past Surgical History: No Surgical Hx Reported Additional Past Surgical History / Comment(s): humerus prosthesis left shoulder Additional Past Anesthesia/Blood Transfusion Reaction / Comment(s): woke up during shouder surg. Past Psychological History: ADD/ADHD, Depression Smoking Status: Current every day smoker Past Alcohol Use History: Abuse, Daily Past Drug Use History: Heroin, Methamphetamine - Past Family History Father History Unknown: Yes Mother Family Medical History: Coronary Artery Disease (CAD) Medications and Allergies Home Medications Medication Instructions Recorded Confirmed Type No Known Home Medications 12/02/19 12/02/19 History Allergies Allergy/AdvReac Type Severity Reaction Status Date / Time No Known Allergies Allergy Verified 12/02/19 12:29 Physical Exam Vitals: Vital Signs Temp Pulse Pulse Resp BP BP Pulse Ox 12/02/19 13:45 98.4 F 73 18 127/80 96 12/02/19 13:00 98.1 F 80 18 122/78 99 12/02/19 09:54 98.3 F 82 18 112/70 100 Intake and Output 12/02/19 12/02/19 12/02/19 06:59 14:59 22:59 Other: Weight 77.111 kg PHYSICAL EXAMINATION: GENERAL: The patient is alert and oriented x3, not in any acute distress. Well developed, well nourished. HEENT: Pupils are round and equally reacting to light. EOMI. No scleral icterus. No conjunctival pallor. Normocephalic, atraumatic. No pharyngeal erythema. No thyromegaly. CARDIOVASCULAR: S1 and S2 present. No murmurs, rubs, or gallops. PULMONARY: Chest is clear to auscultation, no wheezing or crackles. ABDOMEN: Soft, nontender, nondistended, normoactive bowel sounds. No palpable organomegaly. MUSCULOSKELETAL: No joint swelling or deformity. EXTREMITIES: No cyanosis, clubbing, or pedal edema. NEUROLOGICAL: Gross neurological examination did not reveal any focal deficits. SKIN: patient has a an ulcerabout the 3 cm diameter on the proximal portion of the foot close to ankle with a surrounding cellulitis malodorous purulent discharge with a gangrenous base without any granulation tissue in the base. There may be an abscess surrounding the ulcer. Results CBC & Chem 7: 12/02/19 10:36 12/02/19 10:36 Labs: Abnormal Lab Results - Last 24 Hours (Table) 12/02/19 12/02/19 Range/Units 10:36 10:36 Plt Count 523 H (150-450) k/uL ESR 68 H (0-15) mm/hr Sodium 135 L (137-145) mmol/L Potassium 5.3 H (3.5-5.1) mmol/L Creatinine 0.57 L (0.66-1.25) mg/dL C-Reactive Protein 140.4 H (<10.0) mg/L Thrombosis Risk Factor Assmnt - Choose All That Apply Any of the Below Risk Factors Present?: No Other Risk Factors: No Other congenital or acquired thrombophilia - If yes, enter type in comment: No Thrombosis Risk Factor Assessment Level: Very Low Risk Assessment and Plan Plan: -abscess and infected ulcer on the right foot as mentioned above: Patient will be continued on IV vancomycin also consult vascular surgery may need the debridement of the ulcer along with incision and drainage in the surrounding area. Patient is an IV drug user because of which I'll obtain hepatitis panel -History of IVDA patient last used heroin about 36 hours ago expected to have withdrawals will use symptomatic treatment for him withdrawals with the as needed medications for diarrhea and beta christin if his heart rate goes up. -hyperkalemia expected to improve with IV fluids and patient is presently receiving IV fluids -thrombocytosis: Reactive secondary to infection - DVT prophylaxis with the Lovenox due to prophylaxis with Pepcid
--- NOTE | 2019-12-02 17:09 | P.GSCN ---
History of Present Illness History of present illness: 49-year-old white male history of heroine use according to patient he injected heroin left foot about a week ago then he developed abscess and abscess and abscess guard burstedted about 3 days ago and there is drainage of foul odor pus with devitalized tissue the measurement is 4 x 3 cm also noted some swelling and redness around the wound area with followed or smell No history of diabetes hypertension coronary artery disease Personal history patient has history of heroin used on daily basis for known ALLERGY Neck examination neck is supple no bruit appreciated Chest clear first and second sound normal good entry both lungs Abdomen soft nontender Vascular examination femorals are palpable bilateral left foot PT deep not palpable right foot PT and DP palpable there is a necrotic wound at the ankle measurement is 4 x 3 cm with foul order smell Plan is debridement of the wound and deep culture risk and complication discussed with the patient patient scheduled to have surgery tomorrow at 10 AM nothing by mouth Past Medical History Past Medical History: No Reported History Additional Past Medical History / Comment(s): was chewing on edge of plastic bag, accidently bit off piece and is lodged down in throat-can breathe fine, can eat but small amounts only-can feel it down in throat History of Any Multi-Drug Resistant Organisms: None Reported Past Surgical History: No Surgical Hx Reported Additional Past Surgical History / Comment(s): humerus prosthesis left shoulder Additional Past Anesthesia/Blood Transfusion Reaction / Comm: woke up during shouder surg. Past Psychological History: ADD/ADHD, Depression Smoking Status: Current every day smoker Past Alcohol Use History: Abuse, Daily Past Drug Use History: Heroin, Methamphetamine - Past Family History Father History Unknown: Yes Mother Family Medical History: Coronary Artery Disease (CAD) Medications and Allergies Home Medications Medication Instructions Recorded Confirmed Type No Known Home Medications 12/02/19 12/02/19 History Allergies Allergy/AdvReac Type Severity Reaction Status Date / Time No Known Allergies Allergy Verified 12/02/19 12:29 Surgical - Exam Vital Signs Temp Pulse Resp BP Pulse Ox 98.3 F 82 18 112/70 100 12/02/19 09:54 12/02/19 09:54 12/02/19 09:54 12/02/19 09:54 12/02/19 09:54 Results - Labs 12/02/19 10:36 12/02/19 10:36 Abnormal Lab Results - Last 24 Hours (Table) 12/02/19 12/02/19 Range/Units 10:36 10:36 Plt Count 523 H (150-450) k/uL ESR 68 H (0-15) mm/hr Sodium 135 L (137-145) mmol/L Potassium 5.3 H (3.5-5.1) mmol/L Creatinine 0.57 L (0.66-1.25) mg/dL C-Reactive Protein 140.4 H (<10.0) mg/L Microbiology - Last 24 Hours (Table) 12/02/19 10:36 Wound Culture - Preliminary Foot - Right Diabetes panel 12/02/19 Range/Units 10:36 Sodium 135 L (137-145) mmol/L Potassium 5.3 H (3.5-5.1) mmol/L Chloride 100 (98-107) mmol/L Carbon Dioxide 28 (22-30) mmol/L BUN 15 (9-20) mg/dL Creatinine 0.57 L (0.66-1.25) mg/dL Glucose 94 (74-99) mg/dL Calcium 9.2 (8.4-10.2) mg/dL AST 25 (17-59) U/L ALT 15 (4-49) U/L Alkaline Phosphatase 102 (38-126) U/L Total Protein 6.5 (6.3-8.2) g/dL Albumin 3.5 (3.5-5.0) g/dL Calcium panel 12/02/19 Range/Units 10:36 Calcium 9.2 (8.4-10.2) mg/dL Albumin 3.5 (3.5-5.0) g/dL Pituitary panel 12/02/19 Range/Units 10:36 Sodium 135 L (137-145) mmol/L Potassium 5.3 H (3.5-5.1) mmol/L Chloride 100 (98-107) mmol/L Carbon Dioxide 28 (22-30) mmol/L BUN 15 (9-20) mg/dL Creatinine 0.57 L (0.66-1.25) mg/dL Glucose 94 (74-99) mg/dL Calcium 9.2 (8.4-10.2) mg/dL Adrenal panel 12/02/19 Range/Units 10:36 Sodium 135 L (137-145) mmol/L Potassium 5.3 H (3.5-5.1) mmol/L Chloride 100 (98-107) mmol/L Carbon Dioxide 28 (22-30) mmol/L BUN 15 (9-20) mg/dL Creatinine 0.57 L (0.66-1.25) mg/dL Glucose 94 (74-99) mg/dL Calcium 9.2 (8.4-10.2) mg/dL Total Bilirubin 0.3 (0.2-1.3) mg/dL AST 25 (17-59) U/L ALT 15 (4-49) U/L Alkaline Phosphatase 102 (38-126) U/L Total Protein 6.5 (6.3-8.2) g/dL Albumin 3.5 (3.5-5.0) g/dL
[2019-12-02] MEDS: FAMOTIDINE 20 MG TAB PO SCH (20:13)
[2019-12-02] MEDS: VANCOMYCIN 1,500 MG in SODIUM CHLORIDE 0.9% 250 ML IVPB SCH (20:13)
[2019-12-02] MEDS: NICOTINE 21MG/24HR PATCH TRANSDERM SCH (20:15)
--- NOTE | 2019-12-02 22:43 | P.CONS ---
History of Present Illness - Reason for Consult Consult date: 11/25/19 Right foot wound and cellulitis Requesting physician: Soila Irvin - Chief Complaint Right foot wound pain swelling and redness x 1 week - History of Present Illness Patient is 49 year male with a past medical history significant for IV drug use in this patient apparently has injected into his right ankle area patient noticed pain swelling redness to the right ankle area about a week ago area subsequently drained admitted to an open wound patient has been trying to take care of it with some local antibiotic cream without any improvement subsequently he presented to the ER on arrival to the ER the patient was afebrile patient has been complaining of pain to the right lower leg the wound area. More coffee shop and throbbing and almost 10 out of 10 with no radiation with associated swelling redness and some foul-smelling patient complaining of some chills denies high-grade fever with these symptoms the patient was evaluated by the ER physician on arrival to the ER patient did have her next visit of the right foot which did not show any bony changes patient was started on vancomycin has been seen by vascular surgery pending for debridement of this wound in the OR tomorrow infectious disease was consulted for further management of antibiotic therapy, patient did have a normal white count however he did have elevated CRP Review of Systems Positive point has been mentioned in the HPI rest of the systems are negative Past Medical History Past Medical History: No Reported History Additional Past Medical History / Comment(s): was chewing on edge of plastic bag, accidently bit off piece and is lodged down in throat-can breathe fine, can eat but small amounts only-can feel it down in throat History of Any Multi-Drug Resistant Organisms: None Reported Past Surgical History: No Surgical Hx Reported Additional Past Surgical History / Comment(s): humerus prosthesis left shoulder Additional Past Anesthesia/Blood Transfusion Reaction / Comm: woke up during shouder surg. Past Psychological History: ADD/ADHD, Depression Smoking Status: Current every day smoker Past Alcohol Use History: Abuse, Daily Past Drug Use History: Heroin, Methamphetamine - Past Family History Father History Unknown: Yes Mother Family Medical History: Coronary Artery Disease (CAD) Medications and Allergies Home Medications Medication Instructions Recorded Confirmed Type No Known Home Medications 12/02/19 12/02/19 History Allergies Allergy/AdvReac Type Severity Reaction Status Date / Time No Known Allergies Allergy Verified 12/02/19 12:29 Physical Exam Vitals: Vital Signs Temp Pulse Pulse Resp BP BP Pulse Ox 12/02/19 19:40 98.8 F 75 16 130/70 97 12/02/19 14:20 18 12/02/19 13:45 98.4 F 73 18 127/80 96 12/02/19 13:00 98.1 F 80 18 122/78 99 12/02/19 09:54 98.3 F 82 18 112/70 100 Intake and Output 12/02/19 12/02/19 12/02/19 06:59 14:59 22:59 Intake Total 1550 Balance 1550 Intake: Intake, IV Titration 1550 Amount Sodium Chloride 0.9% 1, 300 000 ml @ 75 mls/hr IV . [id number] [facility] Rx#:[id number] Sodium Chloride 0.9% 1, 1000 000 ml @ 999 mls/hr IV . Q1H1M [facility] Rx#:[id number] Vancomycin 1,500 mg In 250 Sodium Chloride 0.9% 250 ml @ 125 mls/hr IVPB Q8H [facility] Rx#:[id number] Other: Weight 77.111 kg GENERAL DESCRIPTION: Middle-aged male lying in bed, no distress. No tachypnea or accessory muscle of respiration use. HEENT: Shows Pallor , no scleral icterus. Oral mucous membrane is dry. No pharyngeal erythema or thrush NECK: Trachea central, no thyromegaly. LUNGS: Unlabored breathing. Clear to auscultation anteriorly. No wheeze or crackle. HEART: S1, S2, regular rate and rhythm. No loud murmur ABDOMEN: Soft, no tenderness , guarding or rigidity, no organomegaly EXTREMITIES: Right lower leg wound with foul-smelling slough tissue and some d evitalized tissue SKIN: No rash, no masses palpable. NEUROLOGICAL: The patient is awake, alert, oriented x3, mood and affect normal. Results CBC & Chem 7: 12/02/19 10:36 12/02/19 10:36 Labs: Abnormal Lab Results - Last 24 Hours (Table) 12/02/19 12/02/19 Range/Units 10:36 10:36 Plt Count 523 H (150-450) k/uL ESR 68 H (0-15) mm/hr Sodium 135 L (137-145) mmol/L Potassium 5.3 H (3.5-5.1) mmol/L Creatinine 0.57 L (0.66-1.25) mg/dL C-Reactive Protein 140.4 H (<10.0) mg/L Microbiology - Last 24 Hours (Table) 12/02/19 10:36 Wound Culture - Preliminary Foot - Right Assessment and Plan Assessment: 1-patient with right lower leg wound and cellulitis in this patient with a history of IV drug use and has injected into this area will need to confirm the head is resistant gram-positive is likely pathogen such as MRSA (1) Cellulitis of right foot Current Visit: Yes Status: Acute Code(s): L03.115 - CELLULITIS OF RIGHT LOWER LIMB SNOMED Code(s): 218846737 Plan: 1- Vancomycin pharmacy to dose target trough of 15 while watching his kidney function and Vanco trough closely 2-we'll await surgical debridement and deep culture We will follow on clinical condition and cultures to further adjust medication if needed Thank you for this consultation will follow this patient with you Time with Patient: Greater than 30
[2019-12-03 01:51] LABS: Hepatitis A Antibody IgM Non-Reactive (Non-Reactive); Hepatitis B Core IgM Non-Reactive (Non-Reactive); Hepatitis B Surface Antigen Non-Reactive (Non-Reactive); Hepatitis C IgG Antibody Non-Reactive (Non-Reactive)
[2019-12-03] MEDS: VANCOMYCIN 1,500 MG in SODIUM CHLORIDE 0.9% 250 ML IVPB SCH ×4 (04:11→21:17)
[2019-12-03] MEDS: MORPHINE SULFATE 4 MG/ML SYRINGE IV PRN ×3 (04:12→19:05)
[2019-12-03] MEDS: SODIUM CHLORIDE 0.9% 1,000 ML IV SCH ×2 (04:12→18:57)
[2019-12-03] MEDS: FAMOTIDINE 20 MG TAB PO SCH ×2 (07:14→20:18)
[2019-12-03] MEDS: ENOXAPARIN 40 MG/0.4 ML SYRINGE SQ SCH (08:09)
[2019-12-03] MEDS: NICOTINE 21MG/24HR PATCH TRANSDERM SCH (08:11)
[2019-12-03] MEDS ORDERED: MIDAZOLAM 2 MG/2 ML VIAL ONE ×2 (09:27)
[2019-12-03] MEDS ORDERED: KETAMINE 10 MG/ML 20 ML VIAL ONE ×2 (09:27)
[2019-12-03] MEDS ORDERED: fentaNYL (PF) 50 MCG/ML 2 ML AMP ONE ×2 (09:27)
[2019-12-03] MEDS ORDERED: LIDOCAINE 1% INJ 10MG/ML (20 ML MDV) ONE ×2 (09:27)
[2019-12-03] MEDS ORDERED: PROPOFOL 10 MG/ML 20 ML VIAL IV ONE ×2 (09:27)
[2019-12-03] MEDS ORDERED: IV FLUID CONTINUATION 1,000 ML IV ONE (09:32)
[2019-12-03] MEDS ORDERED: LIDOCAINE 1% INJ 10MG/ML (20 ML MDV) SQ ONE (09:46)
[2019-12-03] MEDS ORDERED: HYDROmorphone 1 MG/ML 1 ML SYRINGE IVP ONE ×3 (10:10→10:15)
[2019-12-03] MEDS: HYDROmorphone 1 MG/ML 1 ML SYRINGE IVP ONE ×2 (10:20→10:25)
--- NOTE | 2019-12-03 12:36 | P.PCN ---
Description of Procedure: procedure note preoperative diagnoses is wound left ankle with history of injecting heroine with abscess formation measurement of the wound is 4 x 3 cm Postoperative same Procedure debridement of the wound down to separate his tissue and fat patient brought to the operating room and local anesthesia and IV IV sedation foot was prepped and draped applied in the usual sterile manner using knife we excise the wound down to separate his tissue all the devitalized tissue was removed bleeding was controlled and wound was irrigated with saline Aquacel silver rope applied to thto the wound plan is continue with IV antibiotic we did 2 culture and we will change dressing every 48 hours
[2019-12-03] MEDS ORDERED: KETOROLAC 15 MG/ML 1 ML VIAL IVP PRN (13:43)
[2019-12-03] MEDS ORDERED: MIDAZOLAM 2 MG/2 ML VIAL IVP ONE (14:09)
[2019-12-03] MEDS ORDERED: fentaNYL (PF) 50 MCG/ML 2 ML AMP IVP ONE (14:09)
[2019-12-03] MEDS: DOCUSATE 100 MG CAP PO SCH (14:10)
--- NOTE | 2019-12-03 14:59 | P.PN ---
Subjective 49-year-old male came with abscess on the right fourth which became 1 also 3 days ago with us after a spontaneous rupture with purulent drainage. Patient noticed the swelling about a week ago. Patient does admit to using IV drugs does use her ALMOST EVERYDAY BASIS. Patient denied any fever chills patient was never diagnosed with hepatitis. Patient was started on IV vancomycin. Patient was having significant redness swelling and pain in the right leg. Was having some nausea had previous abscesses in the past. 12/03/2019 Patient underwent debridement of wound bivascular surgery today. Cultures were collected, currently growing gram-positive cocci, gram-positive and gram- negative bacilli. Receiving antimicrobial therapy with Unasyn and vancomycin. Patient's family at bedside asking questions which were answered. Currently afebrile, hemodynamically stable. CONSTITUTIONAL: No fever, no malaise, no fatigue. HEENT: No recent visual problems or hearing problems. Denied any sore throat. CARDIOVASCULAR: No chest pain, orthopnea, PND, no palpitations, no syncope. PULMONARY: No shortness of breath, no cough, no hemoptysis. GASTROINTESTINAL: No diarrhea, no nausea, no vomiting, no abdominal pain. NEUROLOGICAL: No headaches, no weakness, no numbness. HEMATOLOGICAL: Denies any bleeding or petechiae. GENITOURINARY: Denies any burning micturition, frequency, or urgency. MUSCULOSKELETAL/RHEUMATOLOGICAL: Denies any joint pain, swelling, or any muscle pain. ENDOCRINE: Denies any polyuria or polydipsia. Objective - Vital Signs Vital signs: Vital Signs Temp 98.3 F 12/03/19 09:58 Pulse 81 12/03/19 10:31 Resp 16 12/03/19 10:31 BP 131/78 12/03/19 10:31 Pulse Ox 100 12/03/19 10:31 Intake & Output 12/02/19 12/03/19 12/03/19 18:59 06:59 18:59 Intake Total 1550 600 300 Output Total 20 Balance 1550 600 280 Weight 77.111 kg 77.111 kg Intake: IV 300 Intake, IV Titration 1550 600 Amount Sodium Chloride 0.9% 1, 300 600 000 ml @ 75 mls/hr IV . [id number] [facility] Rx#:[id number] Sodium Chloride 0.9% 1, 1000 000 ml @ 999 mls/hr IV . Q1H1M [facility] Rx#:[id number] Vancomycin 1,500 mg In 250 Sodium Chloride 0.9% 250 ml @ 125 mls/hr IVPB Q8H [facility] Rx#:[id number] Output: Estimated Blood Loss 20 Other: Voiding Method Toilet # Voids 2 - Exam PHYSICAL EXAMINATION: GENERAL: The patient is alert and oriented x3, not in any acute distress. Well developed, well nourished. HEENT: Pupils are round and equally reacting to light. EOMI. No scleral icterus. No conjunctival pallor. Normocephalic, atraumatic. No pharyngeal erythema. No thyromegaly. CARDIOVASCULAR: S1 and S2 present. No murmurs, rubs, or gallops. PULMONARY: Chest is clear to auscultation, no wheezing or crackles. ABDOMEN: Soft, nontender, nondistended, normoactive bowel sounds. No palpable organomegaly. MUSCULOSKELETAL: No joint swelling or deformity. EXTREMITIES: No cyanosis, clubbing, or pedal edema. NEUROLOGICAL: Gross neurological examination did not reveal any focal deficits. SKIN: Right lower extremity wrapped with Heron wrap and surgical dressing intact. Wound was not directly visualized - Labs CBC & Chem 7: 12/02/19 10:36 12/02/19 10:36 Labs: Microbiology - Last 24 Hours (Table) 12/02/19 10:36 Blood Culture - Preliminary Blood No Growth after 24 hours 12/02/19 10:36 Gram Stain - Preliminary Foot - Right Wound Culture - Preliminary Gram Neg Bacilli Assessment and Plan Plan: Assessment and Plan Plan: -abscess and infected ulcer on the right foot as mentioned above: Status post incision and drainage by Dr. Phillip, wound culture growing polymicrobial growth including gram-positive paracytic, gram-negative and gram-positive bacilli. Continue antimicrobial therapy with vancomycin and Unasyn. -History of IVDA expected to have withdrawals will use symptomatic treatment for him withdrawals with the as needed medications for diarrhea and beta christin if his heart rate goes up. Hepatitis panel was checked and negative -hyperkalemia expected to improve with IV fluids and patient is presently receiving IV fluids -thrombocytosis: Reactive secondary to infection - DVT prophylaxis with the Lovenox GI to prophylaxis with Pepcid
--- NOTE | 2019-12-03 16:31 | PN ---
PROGRESS NOTE DATE OF SERVICE: 12/03/2019 REASON FOR FOLLOWUP: Right leg abscess and cellulitis. INTERVAL HISTORY: Patient was taken to the OR this morning and the patient is status post right ankle wound debridement and removal of devitalized tissue. Culture has been obtained. The patient denies having any chest pain. No shortness of breath or cough. Pain is currently controlled. No nausea, vomiting or diarrhea. PHYSICAL EXAMINATION: Blood pressure 131/70 with a pulse of 81, temperature 98.3. He is 100% on room air. General description is a middle-aged male lying in bed in no distress. Respiratory system: Unlabored breathing, clear to auscultation anteriorly. Heart S1, S2. Regular rate and rhythm. Abdomen is soft, no tenderness. Right ankle area currently dressed with no drainage on the dressing. LABS: Wound culture showing Gram-negative bacilli. DIAGNOSTIC IMPRESSION AND PLAN: Patient with right ankle area abscess from injection drug use, status post debridement. Initial culture showing gram-negative. Patient is covered with Unasyn and vancomycin. We will wait for the culture to finalize to determine discharge antibiotics. Continue supportive care. MMODL / IJN: [id number] /
[2019-12-03] MEDS: AMPICILLIN-SULBACTAM 3 GM in SODIUM CHLORIDE 0.9% 100 ML IVPB SCH ×2 (16:51→19:05)
[2019-12-03] MEDS ORDERED: VANCOMYCIN TROUGH DUE 1 EACH MISC MISCELLANE ONE (20:30)
[2019-12-04] MEDS: AMPICILLIN-SULBACTAM 3 GM in SODIUM CHLORIDE 0.9% 100 ML IVPB SCH ×3 (01:21→14:45)
[2019-12-04] MEDS: MORPHINE SULFATE 4 MG/ML SYRINGE IV PRN ×5 (03:01→20:10)
[2019-12-04] MEDS: VANCOMYCIN 1,500 MG in SODIUM CHLORIDE 0.9% 250 ML IVPB SCH ×3 (05:24→20:10)
[2019-12-04] MEDS: SODIUM CHLORIDE 0.9% 1,000 ML IV SCH (05:24)
[2019-12-04 07:07] LABS: HCT 41.8 % (39.0-53.0); HGB 13.9 gm/dL (13.0-17.5); MCH 30.4 pg (25.0-35.0); MCHC 33.1 g/dL (31.0-37.0); MCV 91.8 fL (80.0-100.0); Mean Platelet Volume 7.3; Platelet Count 487 k/uL (150-450); RBC 4.56 m/uL (4.30-5.90); RDW 12.4 % (11.5-15.5); WBC 8.3 k/uL (3.8-10.6)
[2019-12-04 07:14] LABS: African American GFR (CKD) >90 (>60 ml/min/1.73 sqM); Anion Gap 7 mmol/L; Blood Urea Nitrogen 5 mg/dL (9-20); Calcium 8.9 mg/dL (8.4-10.2); Carbon Dioxide 27 mmol/L (22-30); Chloride 102 mmol/L (98-107); Glucose 102 mg/dL (74-99); Non-African American GFR(CKD) >90 (>60 ml/min/1.73 sqM); Potassium 4.6 mmol/L (3.5-5.1); Sodium 136 mmol/L (137-145)
[2019-12-04] MEDS: ENOXAPARIN 40 MG/0.4 ML SYRINGE SQ SCH ×2 (07:57→08:00)
[2019-12-04] MEDS: DOCUSATE 100 MG CAP PO SCH (07:57)
[2019-12-04] MEDS: FAMOTIDINE 20 MG TAB PO SCH ×2 (07:57→20:10)
[2019-12-04] MEDS: NICOTINE 21MG/24HR PATCH TRANSDERM SCH (07:59)
--- NOTE | 2019-12-04 13:43 | P.PN ---
Subjective 49-year-old male came with abscess on the right fourth which became 1 also 3 days ago with us after a spontaneous rupture with purulent drainage. Patient noticed the swelling about a week ago. Patient does admit to using IV drugs does use her ALMOST EVERYDAY BASIS. Patient denied any fever chills patient was never diagnosed with hepatitis. Patient was started on IV vancomycin. Patient was having significant redness swelling and pain in the right leg. Was having some nausea had previous abscesses in the past. 12/03/2019 Patient underwent debridement of wound by vascular surgery today. Cultures were collected, currently growing gram-positive cocci, gram-positive and gram- negative bacilli. Receiving antimicrobial therapy with Unasyn and vancomycin. Patient's family at bedside asking questions which were answered. Currently afebrile, hemodynamically stable. 12/04/2019 Patient seen in follow-up, daily wound. Following debridement, deep culture growing Gram-negative bacillus, presumptive staph aureus, Proteus vulgaris. Afebrile, hemodynamically stable. Receiving antimicrobial therapy with Unasyn and vancomycin, per ID. No nausea vomiting or diarrhea. CONSTITUTIONAL: No fever, no malaise, no fatigue. HEENT: No recent visual problems or hearing problems. Denied any sore throat. CARDIOVASCULAR: No chest pain, orthopnea, PND, no palpitations, no syncope. PULMONARY: No shortness of breath, no cough, no hemoptysis. GASTROINTESTINAL: No diarrhea, no nausea, no vomiting, no abdominal pain. NEUROLOGICAL: No headaches, no weakness, no numbness. HEMATOLOGICAL: Denies any bleeding or petechiae. GENITOURINARY: Denies any burning micturition, frequency, or urgency. MUSCULOSKELETAL/RHEUMATOLOGICAL: Surgical Pain to right lower extremity ENDOCRINE: Denies any polyuria or polydipsia. All inpatient medications were reviewed and appropriate changes in these medications as dictated in the interval history and assessment and plan. Objective - Vital Signs Vital signs: Vital Signs Temp 98.5 F 12/04/19 07:00 Pulse 70 12/04/19 07:00 Resp 18 12/04/19 07:00 BP 150/76 12/04/19 07:00 Pulse Ox 100 12/04/19 07:00 Intake & Output 12/03/19 12/04/19 12/04/19 18:59 06:59 18:59 Intake Total 300 Output Total 620 Balance -320 Weight 77.111 kg Intake: IV 300 Output: Urine 600 Estimated Blood Loss 20 Other: Voiding Method Toilet - Exam GENERAL: The patient is alert and oriented x3, not in any acute distress. Well developed, well nourished. HEENT: Pupils are round and equally reacting to light. EOMI. No scleral icterus. No conjunctival pallor. Normocephalic, atraumatic. No pharyngeal erythema. No thyromegaly. CARDIOVASCULAR: S1 and S2 present. No murmurs, rubs, or gallops. PULMONARY: Chest is clear to auscultation, no wheezing or crackles. ABDOMEN: Soft, nontender, nondistended, normoactive bowel sounds. No palpable organomegaly. MUSCULOSKELETAL: No joint swelling or deformity. EXTREMITIES: No cyanosis, clubbing, or pedal edema. NEUROLOGICAL: Gross neurological examination did not reveal any focal deficits. SKIN: Right lower extremity wrapped with Heron wrap and surgical dressing intact. Wound was not directly visualized - Labs CBC & Chem 7: 12/04/19 06:08 12/04/19 06:08 Labs: Abnormal Lab Results - Last 24 Hours (Table) 12/04/19 12/04/19 Range/Units 06:08 06:08 Plt Count 487 H (150-450) k/uL Sodium 136 L (137-145) mmol/L BUN 5 L (9-20) mg/dL Creatinine 0.54 L (0.66-1.25) mg/dL Glucose 102 H (74-99) mg/dL Microbiology - Last 24 Hours (Table) 12/02/19 10:36 Gram Stain - Preliminary Foot - Right Wound Culture - Preliminary Proteus vulgaris Proteus vulgaris#2 Presumptive Staph aureus 12/03/19 09:47 Gram Stain - Preliminary Foot - Right Wound Culture - Preliminary Gram Neg Bacilli Presumptive Staph aureus 12/03/19 09:47 Anaerobic Culture - Preliminary Foot - Right 12/02/19 10:36 Blood Culture - Preliminary Blood No Growth after 24 hours Assessment and Plan Plan: Plan: -abscess and infected ulcer on the right foot as mentioned above: Day 2 post incision and drainage by Dr. Phillip, wound culture growing presumptive staph aureus, Proteus vulgaris, gram-negative bacilli. Continue antimicrobial therapy with vancomycin and Unasyn, per ID. Morphine and Toradol as needed for pain. -History of IVDA expected to have withdrawals will use symptomatic treatment for him withdrawals with the as needed medications for diarrhea and beta christin if his heart rate goes up. Hepatitis panel was checked and negative -hyperkalemia: Potassium normalized -thrombocytosis: Reactive secondary to infection - Nicotine dependence: Smoking cessation counseling provided - DVT prophylaxis with the Lovenox GI to prophylaxis with Pepcid
[2019-12-04 14:34] VITALS: BMI 25.8
[2019-12-04] MEDS ORDERED: MAGNESIUM HYDROXIDE 2,400 MG/10 ML CUP PO PRN (17:40)
[2019-12-04] MEDS: CIPROFLOXACIN HCL 500 MG TAB PO SCH (20:10)
--- NOTE | 2019-12-05 00:11 | PN ---
PROGRESS NOTE DATE OF SERVICE: 12/04/2019 REASON FOR FOLLOWUP: Right ankle wound, abscess and cellulitis. INTERVAL HISTORY: The patient is currently afebrile. Still complaining of pain to the right ankle area. The patient denies having any chest pain or shortness of breath or cough. No nausea, no vomiting. No abdominal pain or diarrhea. PHYSICAL EXAMINATION: Blood pressure 154/84 with a pulse of 67, temperature 98. He is 99% on room air. General description is a middle-aged male lying in bed in no distress. RESPIRATORY SYSTEM: Unlabored breathing, clear to auscultation anteriorly. HEART: S1, S2. Regular rate and rhythm. ABDOMEN: Soft. No tenderness. Right middle ankle wound is currently dressed, no drainage on the dressing. LABS: Hemoglobin 13.9, white count 8.3, BUN of 5, creatinine 0.54. Wound culture showing Proteus vulgaris and presumptive Staph aureus. DIAGNOSTIC IMPRESSION AND PLAN: Patient with right medial ankle area wound from injection drug use status post debridement. Culture now showing a drug-resistant Proteus in addition to Staph aureus. Currently covered with vancomycin. Will add Cipro to cover for the Proteus as well as the pathogen was resistant to Unasyn. Re-evaluate the wound tomorrow to determine discharge antibiotics. Continue supportive care. MMODL / IJN: [id number] /
[2019-12-05] MEDS: MORPHINE SULFATE 4 MG/ML SYRINGE IV PRN ×3 (00:20→09:54)
[2019-12-05] MEDS: VANCOMYCIN 1,500 MG in SODIUM CHLORIDE 0.9% 250 ML IVPB SCH ×2 (05:17→13:55)
[2019-12-05 07:02] VITALS: BP 146/78; PULSE 60; RESP 16; TEMP 97.7
[2019-12-05] MEDS: CIPROFLOXACIN HCL 500 MG TAB PO SCH (07:28)
[2019-12-05] MEDS: DOCUSATE 100 MG CAP PO SCH (07:28)
[2019-12-05] MEDS: FAMOTIDINE 20 MG TAB PO SCH (07:28)
[2019-12-05] MEDS: NICOTINE 21MG/24HR PATCH TRANSDERM SCH (07:29)
[2019-12-05] MEDS: ENOXAPARIN 40 MG/0.4 ML SYRINGE SQ SCH (07:31)
[2019-12-05 07:58] LABS: African American GFR (CKD) >90 (>60 ml/min/1.73 sqM); Non-African American GFR(CKD) >90 (>60 ml/min/1.73 sqM)
--- NOTE | 2019-12-05 14:59 | P.DS ---
Providers Date of admission: 12/02/19 12:32 Attending physician: Soila Irvin Consults: 12/02/19 12:32 Consult Physician Stat Consulting Provider: Kalli Sen Consult Reason/Comments: Right foot stage III ulcer, cellulitis Do you want consulting provider notified?: Yes 12/02/19 14:49 Consult Physician Routine Consulting Provider: Erickson Phillip Consult Reason/Comments: wound debridement Do you want consulting provider notified?: Yes Primary care physician: Stated None Hospital Course: 49-year-old male came with abscess on the right fourth which became 1 also 3 days ago with us after a spontaneous rupture with purulent drainage. Patient noticed the swelling about a week ago. Patient does admit to using IV drugs does use her ALMOST EVERYDAY BASIS. Patient denied any fever chills patient was never diagnosed with hepatitis. Patient was started on IV vancomycin. Patient was having significant redness swelling and pain in the right leg. Was having some nausea had previous abscesses in the past. 12/03/2019 Patient underwent debridement of wound by vascular surgery today. Cultures were collected, currently growing gram-positive cocci, gram-positive and gram- negative bacilli. Receiving antimicrobial therapy with Unasyn and vancomycin. Patient's family at bedside asking questions which were answered. Currently afebrile, hemodynamically stable. 12/04/2019 Patient seen in follow-up, daily wound. Following debridement, deep culture growing Gram-negative bacillus, presumptive staph aureus, Proteus vulgaris. Afebrile, hemodynamically stable. Receiving antimicrobial therapy with Unasyn and vancomycin, per ID. No nausea vomiting or diarrhea. 12/05/2019 Patient won't cultures are positive for MSSA and the Proteus vulgaris and patient is being discharged on Keflex and Cipro respectively for those bacteria. Ruled out hepatitis. GENERAL: The patient is alert and oriented x3, not in any acute distress. Well developed, well nourished. HEENT: Pupils are round and equally reacting to light. EOMI. No scleral icterus. No conjunctival pallor. Normocephalic, atraumatic. No pharyngeal erythema. No thyromegaly. CARDIOVASCULAR: S1 and S2 present. No murmurs, rubs, or gallops. PULMONARY: Chest is clear to auscultation, no wheezing or crackles. ABDOMEN: Soft, nontender, nondistended, normoactive bowel sounds. No palpable organomegaly. MUSCULOSKELETAL: No joint swelling or deformity. EXTREMITIES: No cyanosis, clubbing, or pedal edema. NEUROLOGICAL: Gross neurological examination did not reveal any focal deficits. SKIN: Right lower extremity wrapped with Heron wrap and surgical dressing intact. Wound was not directly visualized Final diagnosis -abscess and infected ulcer on the right foot as mentioned above: Day 3 post incision and drainage by Dr. Phillip, but saline sensitive staph aureus, Proteus vulgaris -History of IVDA hepatitis panel negative -thrombocytosis: Reactive secondary to infection - Nicotine dependence: Smoking cessation counseling provided Patient Condition at Discharge: Stable Plan - Discharge Summary Discharge Rx Participant: Yes New Discharge Prescriptions: New Ibuprofen [Motrin] 600 mg PO Q6HR PRN #30 tab PRN Reason: Pain Famotidine [Pepcid] 20 mg PO BID #30 tablet Ciprofloxacin HCl [Cipro] 500 mg PO Q12H #20 tab Cephalexin [Keflex] 500 mg PO Q6HR #40 cap Discharge Medication List Cephalexin [Keflex] 500 mg PO Q6HR #40 cap 12/05/19 [Rx] Ciprofloxacin HCl [Cipro] 500 mg PO Q12H #20 tab 12/05/19 [Rx] Famotidine [Pepcid] 20 mg PO BID #30 tablet 12/05/19 [Rx] Ibuprofen [Motrin] 600 mg PO Q6HR PRN #30 tab 12/05/19 [Rx] Follow up Appointment(s)/Referral(s): Nohemy Balbuena MD [REFERRING] - 3 Days (Please call office to set up appointment) Erickson Phillip MD [STAFF PHYSICIAN] - 12/14/19 11:00 am Patient Instructions/Handouts: Abscess Incision and Drainage (DC) Activity/Diet/Wound Care/Special Instructions: Aquacel silver packing of the wound , change q48hr follow up with Dr sen in wound care next week , call [phone] to make an appointment Discharge Disposition: HOME SELF-CARE
--- NOTE | 2019-12-05 15:36 | PN ---
PROGRESS NOTE DATE OF SERVICE: 12/05/2019 REASON FOR FOLLOWUP: Right leg infected wound and cellulitis. INTERVAL HISTORY: The patient is currently afebrile, has been breathing comfortably. The patient denies having any chest pain or shortness of breath or cough. No nausea, vomiting, abdominal pain. Pain/discomfort to the right leg wound area has decreased. PHYSICAL EXAMINATION: Blood pressure 146/70 with a pulse of 60, temperature 97.7. He is 99% on room air. General description is a middle-aged male lying in bed in no distress. RESPIRATORY SYSTEM: Unlabored breathing. Clear to auscultation anteriorly. HEART: S1, S2. Regular rate and rhythm. ABDOMEN: Soft. No tenderness. LABS: Culture with proteus and MSSA. DIAGNOSTIC IMPRESSION AND PLAN: Patient with right leg wound from injection drug use; culture with proteus and methicillin-susceptible Staphylococcus aeruginosa. Overall improvement on antibiotic therapy. Will switch him over to oral Keflex and Cipro for 10 days. Local wound care with dry Aquacel Silver dressing follow up [facility] next week. MMODL / IJN: [id number] /
[2019-12-06] MEDS ORDERED: VANCOMYCIN TROUGH DUE 1 EACH MISC MISCELLANE ONE (12:00)
--- NOTE | 2019-12-07 22:13 | CDI ---
Documentation Clarification Form Date: 12/08/2019 From: Jhansirani. Herrera Phone: If you have a question about this query, please contact Rin Haley Transmission Supervisor at [phone] between 8am and 5pm. Admit Date: 12/02/2019 Discharge Date: 12/05/2019 Patient Name: Bandar Puente Visit Number: [id number] ATTENTION: The Clinical Documentation Specialists (CDI) and [facility] Coding Staff appreciate your assistance in clarifying documentation. Please respond to the clarification below the line at the bottom and electronically sign. The CDI & [facility] Coding staff will review the response and follow-up if needed. Please note: Queries are made part of the Legal Health Record. If you have any questions, please contact the author of this message via ITS. Dear Dr : Soila Irvin MD, Per your progress notes/operative note, a debridement of wound was performed on 12/02 for Abscess of left ankle. History/Risk Factors: Decubitus ulcer of right foot. Treatment: debridement of wound,Cephalexin [Keflex] 500 mg,Ciprofloxacin HCl [Cipro] 500 mg Five elements required for accurate and compliant documentation of a debridement: 1. Technique used (excise) 2. Instrument(s) used (Knife) 3. Nature of the tissue removed (devitalized tissues) 4. Appearance and size of the wound (4X3cm) 5. Depth of the debridement* (Subcutaneous tissue, fascia) In order to capture the severity of condition and code the appropriate procedure; could you please document the following: Excisional debridement (the removal of necrotic, devitalized tissue or slough by means of cutting away of tissue) Non-excisional debridement (the removal of necrotic, devitalized tissue or slough by means of flushing, brushing, or washing. (Irrigation) Other; please specify (Last Revision: July 2017) MTDD
== END 2019-12-05 14:10 | disposition home or self-care (01) | DRG 570 ==
LOC: EC 09:31 → 4SSUR 12:32
PROVIDERS: ADMIT Internal Medicine; ATTEND Internal Medicine
PROC: 0JBQ0ZZ Excision of Right Foot Subcutaneous Tissue and Fascia, Open Approach (ICD-10-PCS; principal; 2019-12-02)
DX: L02.611 Cutaneous abscess of right foot (principal); L89.893 Pressure ulcer of other site, stage 3; F11.20 Opioid dependence, uncomplicated; L02.413 Cutaneous abscess of right upper limb; L03.115 Cellulitis of right lower limb; Z98.890 Other specified postprocedural states; F17.200 Nicotine dependence, unspecified, uncomplicated; F32.9 Major depressive disorder, single episode, unspecified; F90.9 Attention-deficit hyperactivity disorder, unspecified type; Z82.49 Family history of ischemic heart disease and other diseases of the circulatory system; E87.5 Hyperkalemia; R79.82 Elevated C-reactive protein (CRP); Z71.6 Tobacco abuse counseling
CPT/HCPCS: 36415; 80048; 80053; 80074; 80202; 82565; 83605; 85025; 85027; 85652; 86140; 87040; 87070; 87075; 87077; 87186; 87205; 96365; 96375; 99284

== ENCOUNTER → 2020-04-09 | Outpatient (CLI) | payer OTHER | END | disposition home or self-care (01) | LOC: LABWHC1 12:35 | PROVIDERS: ATTEND Family Medicine | DX: Z20.828 Contact with and (suspected) exposure to other viral communicable diseases (principal) | CPT/HCPCS: U0003; C9803 ==